=== PATIENT | male | born 2000 | race Caucasian/White ===

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

== ENCOUNTER → 2023-10-02 | Outpatient (CLI) | payer OTHER, SELFPAY ==
[2023-10-02 17:19] LABS: Mucous, Urine 0 SEEN /hpf (<or=2+); Squamous Epithelial Cells - UA 0 SEEN /hpf (0-5)
[2023-10-02 17:48] LABS: Color, Urine Yellow (Yellow); Glucose, Dipstick Normal (Normal); Ketone-Dipstick Negative (Negative); Leukocyte Esterase-Dipstick 500 /ul (Negative); Nitrite-Dipstick Negative (Negative); Occult Blood-Urine 10 /ul (Negative); Protein-Dipstick 30 mg/dl (Negative); Urine Bilirubin Dipstick Negative (Negative); Urine Clarity Cloudy (Clear); Urine Urobilinogen Normal (Normal)
[2023-10-02 18:06] LABS: Bacteria RARE /hpf (None Seen); Red Blood Cells-Urine 0-5 SEEN /hpf (0-5); White Blood Cells >100 SEEN /hpf (0-5)
== END | disposition home or self-care (01) ==
PROVIDERS: PCP Pediatrics; Visit Provider Physician Assistant
DX: R30.0 Dysuria (principal)
CPT/HCPCS: 81001; 87086; 87491; 87591

== ENCOUNTER 2024-04-06 20:30 | Emergency (ER) | payer OTHER, SELFPAY ==
[2024-04-06 20:31] VITALS: BP 131/84; PULSE 85; RESP 18; TEMP 36.1; O2SAT 99; BMI 23.3
[2024-04-06 21:22] LABS: Absolute Lymphocyte Count 1.71 X10^3/uL (0.83-4.51); Absolute Neutrophil Count 7.4 X10^3/uL (2.0-7.7); Basophil# 0.04 X10^3/uL; Basophil% 0.4 % (0-1); Eosinophil# 0.32 X10^3/uL; Eosinophils% 3.1 % (0-5); Hematocrit 43.6 % (40-54); Lymphocyte # 1.71 X10^3/ul (0.83-4.51); Lymphocyte % 16.4 % (19-41); Mean Corp Hgb Conc 34.4 g/dL (32-36); Mean Corpuscular Hgb 29.9 pg (27.0-32.0); Mean Corpuscular Volume 86.9 fL (80-94); Mean Platelet Vol. 9.1 fl (6.2-12.0); Monocyte# 0.85 X10^3/uL; Monocyte% 8.2 % (0-10); NRBC Flagged by Analyzer 0 % (0-5); Neutrophil # 7.44 X10^3/uL (2.7-7.7); Neutrophil % 71.5 % (47-70); Platelet Count 310 K/mm3 (150-450); RBC Distribution Width CV 12.7 % (11.6-14.6); RBC Distribution Width SD 40.2 fl (35.1-43.9); Red Blood Count 5.02 M/mm3 (4.6-6.2); White Blood Count 10.4 K/mm3 (4.4-11.0)
[2024-04-06] MEDS: Ondansetron 4 MG/2 ML Vial IV (21:27)
[2024-04-06] MEDS: 0.9% Normal Saline (500mL Bag) 500 ML 999 ML IV (21:27)
[2024-04-06 21:30] VITALS: BP 132/79; PULSE 62; RESP 22; O2SAT 99
[2024-04-06 21:33] LABS: International Normalized Ratio 1.1; Prothrombin Time (Protime)PT. 14.1 SECONDS (11.7-14.9)
[2024-04-06 21:34] LABS: Partial Thromboplast Time 27.4 Seconds (24.1-36.2)
[2024-04-06 21:35] LABS: Anion Gap 7 (5-15); BUN 8 mg/dL (7-18); BUN/Creat Ratio 7.1 RATIO (10-20); Calcium,Total 9.3 mg/dL (8.5-10.1); Chloride 103 mmol/L (98-107); Creatinine, Serum 1.13 mg/dL (0.70-1.30); EST Glomerular Filtration Rate 86 mL/min (>60); Est Glom Filt Rate - Afr Amer 105 mL/min (>60); Glucose 88 mg/dL (74-106); Potassium 3.5 mmol/L (3.5-5.1); Sodium Level 138 mmol/L (136-145)
--- NOTE | 2024-04-06 21:50 | CT_ITS ---
EXAM: CT CERVICAL SPINE WITHOUT INTRAVENOUS CONTRAST CLINICAL INDICATION: polytrauma TECHNIQUE: Helically acquired images were obtained of the cervical spine without intravenous contrast. 2D reformatted images were reviewed. This CT exam was performed using one or more of the following dose reduction techniques: automated exposure control, adjustment of the mA and/or kV according to patient size, and/or use of iterative reconstruction technique. RADIATION DOSE: Total DLP: 488.81 mGy-cm. COMPARISON: No relevant prior studies available. FINDINGS: VERTEBRAE: Unremarkable. No compression fracture, posterior element fracture or facet dislocation. The odontoid is intact. No traumatic subluxation. No discrete lytic or blastic abnormality. Normal alignment. Normal craniocervical junction and cervicothoracic junction. DISCS/SPINAL CANAL/NEURAL FORAMINA: Unremarkable. Disc heights are preserved. No critical stenosis. No neural foraminal encroachment. SOFT TISSUES: Unremarkable. No prevertebral soft tissue swelling. LUNG APICES: Unremarkable as visualized. Clear. Visualized upper ribs are intact. CT/Spine Cervical without Contras IMPRESSION: Negative. No evidence of acute cervical spinal fracture or spondylolisthesis. Electronically Signed: Luis Shrestha MD at 23:24 EDT ,
--- NOTE | 2024-04-06 21:50 | CT_ITS ---
EXAM: CT HEAD WITHOUT INTRAVENOUS CONTRAST CLINICAL INDICATION: head injury TECHNIQUE: Multiple axial images were obtained of the head without intravenous contrast. This CT exam was performed using one or more of the following dose reduction techniques: automated exposure control, adjustment of the mA and/or kV according to patient size, and/or use of iterative reconstruction technique. RADIATION DOSE: Total DLP: 829.85 mGy-cm. COMPARISON: No relevant prior studies available. FINDINGS: BRAIN AND EXTRA-AXIAL SPACES: Unremarkable. No intra- or extra-axial hemorrhage. No evidence of acute infarct. No intracranial mass or mass effect. There is preservation of the mcneill/white matter interface. Posterior fossa structures are unremarkable. Ventricles are appropriate for age. No hydrocephalus. Basal cisterns are patent. BONES/JOINTS: Unremarkable. No discrete lytic or blastic abnormalities. No linear or depressed skull fracture. SOFT TISSUES: Unremarkable. No scalp hematoma. SINUSES: Minimal to mild mucosal thickening noted within the inferior frontal sinuses, ethmoid air cells, maxillary antra and left sphenoid sinus. No paranasal sinus air-fluid levels are identified. MASTOID AIR CELLS: Unremarkable. Clear. ORBITS: Visualized globes, extraocular muscles, optic nerves and retrobulbar fat appear unremarkable. CT/Brain/Head without Contrast IMPRESSION: Minimal to mild paranasal sinus mucosal thickening. Otherwise negative. No skull fracture or acute intracranial hemorrhage. Electronically Signed: Luis Shrestha MD at 23:20 EDT ,
[2024-04-06 22:00] VITALS: BP 117/78; PULSE 58; RESP 22; O2SAT 99
[2024-04-06 23:00] VITALS: BP 125/75; PULSE 58; RESP 17; O2SAT 97
[2024-04-06] MEDS: Acetaminophen 500 MG Tablet 1000 MG PO (23:32)
--- NOTE | 2024-04-06 23:39 | EX.ED.GENINJ ---
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 He fell off the bull he states he took the horn to the head. He states he did lose conscious. Headache with nausea. Laceration to right ear. Initially reported tetanus unknown however later stated within 5 years. No anticoagulation. He has had concussions in the past. He is not on any blood thinners. No neck back or chest pain. Ambulating to the department. Denies any allergies. Tetanus Immunization: <5 years Prior similar symptoms: Yes PFSH PFS Medical History Acute otitis media, right Urethral discharge Non-smoker Hydrocele Home Medications ?Medication ?Instructions ?Recorded ?Last Taken ?Type ondansetron 4 mg disintegrating 4 mg PO Q8H PRN PRN Nausea #10 tabs 04/06/24 Unknown Rx tablet Allergy/AdvReac Type Severity Reaction Status Date / Time No Known Allergies Allergy Verified 10/02/23 15:37 Family History Father Hypertension Surgical History History of tonsillectomy and adenoidectomy Social History housing: house Smoking Status: Never smoker Smokeless tobacco user: snuff alcohol intake: never what type of physical activity do you participate in: none do you feel safe at home: Yes ROS ROS ED Constitutional Constitutional ED: Denies chills, fever(s) or sweats Eyes Eyes: Denies change in vision ENT ENT ED: Denies dysphagia or sore throat Cardiovascular Cardiovascular: Denies chest pain, leg edema, palpitations or racing heartbeat Respiratory/Chest Respiratory/Chest: Denies cough, dyspnea or dyspnea on exertion Gastrointestinal Gastrointestinal: Reports nausea; Denies abdominal pain, diarrhea or vomiting Genitourinary Genitourinary ED: Denies dysuria, hematuria or urinary frequency Musculoskeletal Musculoskeletal: Denies back pain, extremity pain or neck pain Integumentary Reports wounds; Denies rash Neurologic Neurologic: Reports headache(s); Denies paresthesias or weakness EXAM Physical Exam Const Vital Signs: 04/06/24 20:31 04/06/24 21:30 04/06/24 21:44 Temperature 97 F L Temperature Source Temporal Pulse Rate 85 62 Respiratory Rate 18 22 H Respiratory Effort Normal Respiratory Depth Normal Respiratory Pattern Normal Blood Pressure 131/84 H 132/79 H Blood Pressure Mean 99 96 Pulse Ox 99 99 Oxygen Delivery Method Room Air Room Air Room Air 04/06/24 22:00 04/06/24 23:00 04/07/24 00:03 Temperature 97.8 F Temperature Source Pulse Rate 58 L 58 L 64 Respiratory Rate 22 H 17 18 Respiratory Effort Respiratory Depth Respiratory Pattern Blood Pressure 117/78 125/75 H 112/66 Blood Pressure Mean 91 91 81 Pulse Ox 99 97 99 Oxygen Delivery Method Room Air Room Air Positive well nourished and well developed Constitutional Narrative: GCS 15 General Appearance ED: well developed and NAD HEENT Reports moist mucous membranes HEENT Narrative: Right ear: On inferior auricle near the tragus, 1 cm laceration additional puncture inferior to the tragus. Bleeding controlled with pressure. There was blood in the canal however TM was intact. Left ear: Normal. normocephalic Eyes EOMs intact bilaterally and conjunctivae normal General Eye ED: Yes normal appearance of both eyes Neck no lymphadenopathy and supple General: Negative for tenderness Chest Wall inspection of chest normal and palpation of chest normal Chest: Negative for tenderness Resp normal respiratory effort and normal air movement Effort and Inspection: symmetric chest movement; Negative for respiratory distress Cardio regular rate, regular rhythm and no murmurs Peripheral Pulses: pulses 2+ throughout GI normal to inspection, nondistended, normoactive bowel sounds and non-tender Palpation: Negative for guarding or rebound tenderness present Back/Spine no CVA tenderness, normal to inspection and no thoracic nor lumbar tenderness Extremity normal to inspection and full ROM General Extremety ED: Negative for edema or tenderness General Extremity: Negative for edema Neuro oriented x3, CN's II-XII intact bilaterally and no sensory deficits noted Sensorium / Orientation: awake and alert Skin Skin Narrative: See above MDM MDM MDM Narrative Medical decision making narrative: Interventions / MDM: Differential diagnosis: Concussion with loss of consciousness Diagnosis considered but do not suspect: Intracranial hemorrhage/fracture however image studies negative. My EKG interpretation: N/A Imaging independently reviewed and interpreted by myself: CT brain/cervical spine: No intracranial hemorrhage, no fractures noted. External documents reviewed: N/A Test considered but not ordered:N/A ED course: Patient had IV established by nursing with labs drawn. This was sent. Head injury with loss of consciousness. With high mechanism injury, trauma scans head and neck ordered for further evaluation. IV Zofran ordered. Scans were negative for fracture or intracranial hemorrhage. His tetanus up-to-date. I discussed options for laceration repair potential 1 stitch however declines 1 skin glue. Wound was cleansed by nursing this was glued with good approximation. There was no auricular hematoma on exam. Blood in his external canal likely from the laceration. His TM was intact. Treated with Tylenol. Concussion precautions were discussed. Outpatient follow-up. He will continue Tylenol. Prescription for Zofran to use as needed. Re-evaluation: stable Disposition discussed with patient/family/significant other: Patient and mother Case discussed with consulting clinician: N/A This note was generated with [employer] dictation software. It may contain incorrect words, spelling, and punctuation that were not noted in checking the note before signing. Lab Data Attestation: I reviewed the patient's lab results. Labs: Laboratory Results - last 24 hr 04/06/24 21:15 WBC 10.4 RBC 5.02 Hgb 15.0 Hct 43.6 MCV 86.9 MCH 29.9 MCHC 34.4 RDW Std Deviation 40.2 RDW Coeff of Tyrese 12.7 Plt Count 310 MPV 9.1 Immature Gran % (Auto) 0.400 Neut % (Auto) 71.5 H Lymph % (Auto) 16.4 L [place] % (Auto) 8.2 Eos % (Auto) 3.1 Baso % (Auto) 0.4 Absolute Neuts (auto) 7.4 Absolute Lymphs (auto) 1.71 Nucleated RBC % 0 PT 14.1 INR 1.1 APTT 27.4 Sodium 138 Potassium 3.5 Chloride 103 Carbon Dioxide 28.0 Anion Gap 7 BUN 8 Creatinine 1.13 Estim Creat Clear Calc 113.50 Est GFR (MDRD) Af Amer 105 Est GFR (MDRD) Non-Af 86 BUN/Creatinine Ratio 7.1 L Glucose 88 Calcium 9.3 Radiography Diagnostic Testing: Clinical Impression(s) from Imaging Studies Brain CT 04/06/24 21:50 IMPRESSION: Minimal to mild paranasal sinus mucosal thickening. Otherwise negative. No skull fracture or acute intracranial hemorrhage. Electronically Signed: Luis Shrestha MD at 23:20 EDT , Cervical Spine CT 04/06/24 21:50 IMPRESSION: Negative. No evidence of acute cervical spinal fracture or spondylolisthesis. Electronically Signed: Luis Shrestha MD at 23:24 EDT , Discharge Plan Triage Chief Complaint: Head Injury ED Provider: Julina Martinez Dx/Rx/DC Orders Clinical Impression: Concussion with loss of consciousness <= 30 min, Laceration of auricle of right ear, Nausea Instructions: Concussion Dc, ED Laceration, Skin Adhesive Prescriptions: New ondansetron 4 mg tablet,disintegrating 4 mg PO Q8H PRN PRN (Reason: Nausea) Qty: 10 0RF Primary Care Provider: Care Physician,No Primary Referrals: Lisa Mart [Non-Staff] - 1-2 Weeks Care Physician,No Primary [Primary Care Provider] - Activity Restrictions/Additional Instructions: CT brain and cervical spine negative. Adhesive glue placed to your right ear. Print Language: German Disposition Disposition: Home, Self Care Discharge Date/Time: 04/07/24 00:05
[2024-04-07 00:03] VITALS: BP 112/66; PULSE 64; RESP 18; TEMP 36.6; O2SAT 99
== END 2024-04-07 00:05 | disposition home or self-care (01) ==
PROVIDERS: Emergency Provider Emergency Medicine; Visit Provider Emergency Medicine
DX: S01.311A Laceration without foreign body of right ear, initial encounter (principal); R11.0 Nausea; S06.0X1A Concussion with loss of consciousness of 30 minutes or less, initial encounter; W55.22XA Struck by cow, initial encounter; Y93.89 Activity, other specified
CPT/HCPCS: 70450; 72125; 80048; 85025; 85610; 85730; 96361; 96374; 99283; J7040; A4216; J2405

== ENCOUNTER 2025-08-14 16:17 | Emergency (ER) | payer BC, OTHER, SELFPAY ==
[2025-08-14 16:18] VITALS: BP 141/81; PULSE 65; RESP 18; TEMP 36.1; O2SAT 100; BMI 24.1
--- NOTE | 2025-08-14 16:28 | EX.ED.UPPERE ---
HPI History of Present Illness HPI Narrative: Healthy 25-year-old male who is right-hand dominant. Accidentally lacerated the distal palmar aspect on the radial side of his left index finger about an hour ago at home. He was using a razor blade. No other complaints. Believes tetanus is up-to-date. Chief Complaint: Laceration Informant: patient and parent Occured/Mechanism Mechanism/Context: Yes injury Onset/Context/Timing Onset: Today and Hours (About 1 hour ago.) Context: Sudden Onset Timing: Continuous Quality of Pain: Sharp Current Severity: Mild Maximum Severity: Mild Associated Symptoms Associated Symptoms: Negative for Parasthesia, Weakness or Loss of Funtion Narrative Narrative: Healthy 24-year-old male [id number] lacerated the left index finger distal palmar end of the index finger with a razor blade accidentally about an hour ago. Believes his tetanus is up-to-date. Tetanus Immunization: 5-10 years Prior similar symptoms: No Recent Illness/Hospitalization: No PFSH PFSH Medical History Acute otitis media, right Urethral discharge Non-smoker Hydrocele Home Medications ?Medication ?Instructions ?Recorded ?Last Taken ?Type ondansetron 4 mg disintegrating 4 mg PO Q8H PRN PRN Nausea #10 tabs 04/06/24 Unknown Rx tablet Allergy/AdvReac Type Severity Reaction Status Date / Time No Known Allergies Allergy Verified 08/14/25 16:18 Family History Father Hypertension Surgical History History of tonsillectomy and adenoidectomy Social History housing: house Smoking Status: Never smoker Smokeless tobacco user: snuff alcohol intake: never what type of physical activity do you participate in: none do you feel safe at home: Yes ROS ROS ED ROS Narrative Denies recent illness. Constitutional Constitutional ED: Denies chills or fever(s) Eyes Eyes: Denies blurry vision ENT ENT ED: Denies ear pain Cardiovascular Cardiovascular: Denies chest pain Respiratory/Chest Respiratory/Chest: Denies cough Gastrointestinal Gastrointestinal: Denies abdominal pain Genitourinary Genitourinary ED: Denies dysuria Musculoskeletal Musculoskeletal: Denies back pain Integumentary Denies abscess or Abrasions Neurologic Neurologic: Denies headache(s) Psychiatric Psychiatric: Denies anxiety Endocrine Endocrinology: Denies cold intolerance or heat intolerance Allergic/Immunologic Allergic/Immunologic ED: Denies mouth swelling, tongue swelling or urticaria EXAM Physical Exam Narrative Exam Narrative: Well-appearing 25-year-old male. Vital signs are stable afebrile. No acute distress. H EENT exam pupils round react light. Moist mucous members. Lungs clear to auscultation bilaterally. Heart regular rhythm no murmur. Chest wall nontender. Abdomen soft nontender. Moving all 4 extremities. Neurovascularly intact. Left index finger palmar aspect distal third pasty PIP there is a 1 to 2 inch laceration that is bleeding. No pulsatile bleeding. He has full flexion extension there is no signs of a flexor tendon injury. Normal touch sensation. No signs of infection or foreign body. Neurologically is awake alert. Answering questions following commands. Normal sensation around the wound area. Const Vital Signs: 08/14/25 16:18 Temperature 97 F L Temperature Source Temporal Pulse Rate 65 Respiratory Rate 18 Blood Pressure 141/81 H Blood Pressure Mean 101 Pulse Ox 100 Oxygen Delivery Method Room Air MDM MDM MDM Narrative Medical decision making narrative: 25-year-old [id number] male accidentally lacerated his left index finger about an hour ago on a razor blade. Believes his tetanus is up-to-date. This will need suture repaired. He is currently cleaning off from the sink with soap and water. Area we will anesthetize and then closed. Prior to discharge his father did want him to have his tetanus updated so that will be done also. History & Record Review Discussion w/independent historian: Patient and Family Additional record(s) reviewed:: Prior outpatient record, Prior ED visit and Prior labs Procedures Lacerations Left index finger laceration:: Length: 1.5 in Depth: Sub Q Shape: Linear Laceration repair: Digital block, Irrigated, Lidocaine and Nerve block (Digital block) Number of Sutures/Brilliant: 3 Suture Information: Ethilon, Simple and 4-0 Comment: Left index finger laceration. Distal third. Palmar aspect radial side of the left index finger and about an inch from the tip. Follows the skin and subcu tissue. Oozing of blood. No pulsatile bleeding. No signs of foreign body or infection. Full flexion extension. Locally anesthetized with a digital block. 1 to 2 inch laceration. Closed using 3 simple erupted 4-0 Ethilon sutures. Proper hemostasis wound closure obtained. Patient tolerated well. He was instructed on wound care and suture removal in 7 to 10 days. White Trays signs of infection. Discharge Plan Triage Chief Complaint: Laceration ED Provider: Ulisses Tan Dx/Rx/DC Orders Clinical Impression: Finger laceration Instructions: ED Hand Laceration- All Closures Prescriptions: No Action ondansetron 4 mg tablet,disintegrating 4 mg PO Q8H PRN PRN (Reason: Nausea) Qty: 10 0RF Primary Care Provider: Care Physician,No Primary Referrals: Steve Flood MD [Med Staff - [facility]] - 10 Day for suture removal Care Physician,No Primary [Primary Care Provider, Medical] Activity Restrictions/Additional Instructions: Tylenol and/or Motrin for pain. If our dressing stays dry and clean you can leave it on for 3 to 4 days then change daily and clean daily with soap and water and apply antibiotic ointment. If it gets dirty or wet change it. You can just use a Band-Aid. Watch for any signs of infection such as swelling, redness, fever or pus if seen return. Stitches out in 10 days. Print Language: Nigerien Disposition Disposition: Home, Self Care
--- OUTSIDE RECORDS SUMMARY | 2025-08-14 16:43 | XMS RPT_ITS | CCD ---
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 04/29/2024) predniSONE (DELTASONE) 10 mg tablet Take 4 tabs daily for 3 days, then 2 tabs daily for 3 days, then 1 tab daily for 3 days with food. (Patient not taking: Reported on 01/22/2024) FAMILY HISTORY Problem Relation Age of Onset Asthma Father Hypertension Father Social History Tobacco Use Smoking status: Never Smokeless tobacco: Current Tobacco comments: chew Substance Use Topics Alcohol use: No Drug use: No Review of Systems Constitutional: Negative for chills, diaphoresis, fatigue and fever. HENT: Negative for congestion and sore throat. Respiratory: Negative for apnea, cough, choking and chest tightness. Cardiovascular: Negative for chest pain. Gastrointestinal: Negative for abdominal pain, anorexia, change in bowel habit, nausea and vomiting. Musculoskeletal: Negative for arthralgias, joint swelling, myalgias and neck pain. Right forearm Skin: Negative for color change, pallor and rash. Neurological: Negative for vertigo, weakness, numbness and headaches. Hematological: Negative for adenopathy. Does not bruise/bleed easily. Psychiatric/Behavior al: Negative for agitation and behavioral problems. Objective BP 122/78 Pulse 70 Temp 36.2 ?C (97.2 ?F) Resp 20 Wt 78.7 kg (173 lb 8 oz) SpO2 100% Physical Exam Vitals and nursing note reviewed. Constitutional: General: He is not in acute distress. Appearance: Normal appearance. He is not ill-appearing, toxic-appearing or diaphoretic. HENT: Head: Normocephalic and atraumatic. Right Ear: External ear normal. Left Ear: External ear normal. Nose: Nose normal. No congestion or rhinorrhea. Mouth/Throat: Mouth: Mucous membranes are moist. Pharynx: Oropharynx is clear. No oropharyngeal exudate or posterior oropharyngeal erythema. Eyes: General: Right eye: No discharge. Left eye: No discharge. Extraocular Movements: Extraocular movements intact. Conjunctiva/sclera: Conjunctivae normal. Pupils: Pupils are equal, round, and reactive to light. Cardiovascular: Rate and Rhythm: Normal rate and regular rhythm. Pulses: Normal pulses. Heart sounds: Normal heart sounds. No murmur heard. No friction rub. No gallop. Pulmonary: Effort: Pulmonary effort is normal. No respiratory distress. Breath sounds: Normal breath sounds. No stridor. No wheezing, rhonchi or rales. Chest: Chest wall: No tenderness. Abdominal: General: Abdomen is flat. There is no distension. (more content not included)... Normal [facility] XR WRIST 3V PA/LAT/OBL RTon 04-29-2024 XR WRIST 3V PA/LAT/OBL RT * * *Final Report* * * DATE OF EXAM: Apr 29 2024 5:45PM WOX 5271 - XR WRIST 3V PA/LAT/OBL RT / PROCEDURE REASON: Pain of right forearm * * * * Physician Interpretation * * * * RIGHT WRIST X-RAY SERIES HISTORY: Pain of right forearm TECHNIQUE: PA, lateral, oblique COMPARISON: None available. RESULT: No evidence of acute fracture or dislocation. A metal plate and multiple metal screws transfix the mid to distal right ulna. The surgical hardware appears intact. There is an ossicle or old ununited fracture involving the ulnar styloid. There is some flattening along the ulnar aspect of the lunate bone which may be related to old trauma. IMPRESSION: No acute osseous abnormality is identified. [facility] Transcribe Date/Time: Apr 29 2024 7:11P Dictated by : ELIANA ROCHE MD This examination was interpreted and the report reviewed and electronically signed by: ELIANA ROCHE MD on Apr 29 2024 7:14PM EST [id number] CN Normal [facility] XR Wrist - right PA and Late ral and Obliqueon 04-29-2024 IMPRESSION: No acute osseous abnormality is identified. Stripper Cutter Machine: [facility] Transcribe Date/Time: Apr 29 2024 7:11P Dictated by : ELIANA ROCHE MD This examination was interpreted and the report reviewed and electronically signed by: ELIANA ROCHE MD on Apr 29 2024 7:14PM EST DIVISION OF RADIOLOGY * * *Final Report* * * DATE OF EXAM: Apr 29 2024 5:45PM WOX 5271 - XR WRIST 3V PA/LAT/OBL RT / PROCEDURE REASON: Pain of right forearm * * * * Physician Interpretation * * * * RIGHT WRIST X-RAY SERIES HISTORY: Pain of right forearm TECHNIQUE: PA, lateral, oblique COMPARISON: None available. RESULT: No evidence of acute fracture or dislocation. A metal plate and multiple metal screws transfix the mid to distal right ulna. The surgical hardware appears intact. There is an ossicle or old ununited fracture involving the ulnar styloid. There is some flattening along the ulnar aspect of the lunate bone which may be related to old trauma. DIVISION OF RADIOLOGY Provider, [facility] [place] - 04/29/2024 * * *Final Report* * * DATE OF EXAM: Apr 29 2024 5:45PM WOX 5271 - XR WRIST 3V PA/LAT/OBL RT / PROCEDURE REASON: Pain of right forearm * * * * Physician Interpretation * * * * RIGHT WRIST X-RAY SERIES HISTORY: Pain of right forearm TECHNIQUE: PA, lateral, oblique COMPARISON: None available. RESULT: No evidence of acute fracture or dislocation. A metal plate and multiple metal screws transfix the mid to distal right ulna. The surgical hardware appears intact. There is an ossicle or old ununited fracture involving the ulnar styloid. There is some flattening along the ulnar aspect of the lunate bone which may be related to old trauma. IMPRESSION IMPRESSION: No acute osseous abnormality is identified. Stripper Cutter Machine: [facility] Transcribe Date/Time: Apr 29 2024 7:11P Dictated by : ELIANA ROCHE MD This examination was interpreted and the report reviewed and electronically signed by: ELIANA ROCHE MD on Apr 29 2024 7:14PM [facility] Radiology Study observation (narrative) [facility] XR Wrist - right PA and Late ral and ObliqueOrdered By: [facility] Provider on 04-29-2024 [facility] Basic Metabolic Profile (BMP )on 04-06-2024 BUN/CRE 7.1 RATIO Low 10-20 [facility] Comment on above: Performed By: #### L 500.2500, L100.0100, L300.4310, L300.3900 #### [facility] [address] [place], [address] CA,Total 9.3 mg/dL Normal 8.5-10.1 [facility] Comment on above: Performed By: #### L 500.2500, L100.0100, L300.4310, L300.3900 #### [facility] [address] [place], [address] Chloride [Moles/Vol] 103 mmol/L Normal 98-107 [facility] Comment on above: Performed By: #### L 500.2500, L100.0100, L300.4310, L300.3900 #### [facility] [address] [place], [address] CO2 [Moles/Vol] 28.0 mmol/L Normal 21.0-32.0 [facility] Comment on above: Performed By: #### L 500.2500, L100.0100, L300.4310, L300.3900 #### [facility] [address] [place], [address] Creatinine [Mass/Vol] 1.13 mg/dL Normal 0.70-1.30 [facility] Comment on above: Result Comment: The validity of the calculated GFR GFRAA in patients over 70 years has not been determined. Clinical correlation is essential. Performed By: #### L 500.2500, L100.0100, L300.4310, L300.3900 #### [facility] [address] [place], [address] ECRCL 113.50 ml/min Normal [facility] Comment on above: Performed By: #### L 500.2500, L100.0100, L300.4310, L300.3900 #### [facility] [address] [place], [address] EST GFR - AA 105 mL/min Normal >60 [facility] Comment on above: Result Comment: Afri can Salvadorean GFR Calc Performed By: #### L 500.2500, L100.0100, L300.4310, L300.3900 #### [facility] [address] [place], [address] GAP 7 Normal 5-15 [facility] Comment on above: Performed By: #### L 500.2500, L100.0100, L300.4310, L300.3900 #### [facility] [address] [place], [address] GFR/1.73 sq M.predicted among non-blacks MDRD (S/P/Bld) [Vol rate/Area] 86 mL/min/{1.73_m2} Normal >60 [facility] Comment on above: Result Comment: Non- GFR Calc Performed By: #### L 500.2500, L100.0100, L300.4310, L300.3900 #### [facility] [address] [place], [address] Glucose [Mass/Vol] 88 mg/dL Normal 74-106 [facility] Comment on above: Performed By: #### L 500.2500, L100.0100, L300.4310, L300.3900 #### [facility] [address] [place], [address] Potassium [Moles/Vol] 3.5 mmol/L Normal 3.5-5.1 [facility] Comment on above: Performed By: #### L 500.2500, L100.0100, L300.4310, L300.3900 #### [facility] [address] [place], [address] Sodium [Moles/Vol] 138 mmol/L Normal 136-145 [facility] Comment on above: Performed By: #### L 500.2500, L100.0100, L300.4310, L300.3900 #### [facility] [address] [place], [address] Urea nitrogen [Mass/Vol] 8 mg/dL Normal 7-18 [facility] Comment on above: Performed By: #### L 500.2500, L100.0100, L300.4310, L300.3900 #### [facility] [address] [place], [address] Brain/Head without Contrasto n 04-06-2024 Brain/Head without Contrast [facility] [address] [place] [address] Brain/Head without Contrast MR#: [id number] Acct: [id number] Name: SEVERO WHITE Rep #: [id number] : 2000 M 23 From: Luis herron MD PCP: Care Physician,No Primary Status: REG ER Study: Brain/Head without Contrast Date of Exam: 03/21 03/13 Exam# [id number] Ordering Dr: Julian Martinez DO [id number] EXAM: CT HEAD WITHOUT INTRAVENOUS CONTRAST CLINICAL INDICATION: head injury TECHNIQUE: Multiple axial images were obtained of the head without intravenous contrast. This CT exam was performed using one or more of the following dose reduction techniques: automated exposure control, adjustment of the mA and/or kV according to patient size, and/or use of iterative reconstruction technique. RADIATION DOSE: Total DLP: 829.85 mGy-cm. COMPARISON: No relevant prior studies available. FINDINGS: BRAIN AND EXTRA-AXIAL SPACES: Unremarkable. No intra- or extra-axial hemorrhage. No evidence of acute infarct. No intracranial mass or mass effect. There is preservation of the mcneill/white matter interface. Posterior fossa structures are unremarkable. Ventricles are appropriate for age. No hydrocephalus. Basal cisterns are patent. BONES/JOINTS: Unremarkable. No discrete lytic or blastic abnormalities. No linear or depressed skull fracture. SOFT TISSUES: Unremarkable. No scalp hematoma. SINUSES: Minimal to mild mucosal thickening noted within the inferior frontal sinuses, ethmoid air cells, maxillary antra and left sphenoid sinus. No paranasal sinus air-fluid levels are identified. MASTOID AIR CELLS: Unremarkable. Clear. ORBITS: Visualized globes, extraocular muscles, optic nerves and retrobulbar fat appear unremarkable. CT/Brain/Head without Contrast IMPRESSION: Minimal to mild paranasal sinus mucosal thickening. Otherwise negative. No skull fracture or acute intracranial hemorrhage. Electronically Signed: Luis Shrestha MD at 23:20 EDT , CC: Dr. Julian Martinez DO; No Primary Care Physician Stripper Cutter Machine: Signed Normal [facility] CBC W/Diff, Automatedon 03-21 Absolute Lymph 1.71 X10 3/uL Normal 0.83-4.51 [facility] Comment on above: Performed By: #### L 500.2500, L100.0100, L300.4310, L300.3900 #### [facility] [address] [place], [address] Absolute Neut 7.4 X10 3/uL Normal 2.0-7.7 [facility] Comment on above: Performed By: #### L 500.2500, L100.0100, L300.4310, L300.3900 #### [facility] [address] [place], [address] Basophils/100 WBC (Bld) 0.4 % Normal 0-1 [facility] Comment on above: Performed By: #### L 500.2500, L100.0100, L300.4310, L300.3900 #### [facility] [address] [place], [address] Eosinophils/100 WBC (Bld) 3.1 % Normal 0-5 [facility] Comment on above: Performed By: #### L 500.2500, L100.0100, L300.4310, L300.3900 #### [facility] [address] [place], [address] Erythrocyte distribution width (RBC) [Ratio] 12.7 % Normal 11.6-14.6 [facility] Comment on above: Performed By: #### L 500.2500, L100.0100, L300.4310, L300.3900 #### [facility] [address] [place], [address] Hematocrit (Bld) [Volume fraction] 43.6 % Normal 40-54 [facility] Comment on above: Performed By: #### L 500.2500, L100.0100, L300.4310, L300.3900 #### [facility] [address] [place], [address] Hemoglobin (Bld) [Mass/Vol] 15.0 g/dL Normal 13.0-16.5 [facility] Comment on above: Performed By: #### L 500.2500, L100.0100, L300.4310, L300.3900 #### [facility] [address] [place], [address] IG% 0.400 Normal 0.0-0.9 [facility] Comment on above: Result Comment: IG% - Immature Granulocytes (promyelocytes, myelocytes and metamyelocytes) > 1% indicates that a LEFT SHIFT is Present. Performed By: #### L 500.2500, L100.0100, L300.4310, L300.3900 #### [facility] [address] [place], [address] Lymphocytes/100 WBC (Bld) 16.4 % Low 19-41 [facility] Comment on above: Performed By: #### L 500.2500, L100.0100, L300.4310, L300.3900 #### [facility] [address] [place], [address] MCH (RBC) [Entitic mass] 29.9 pg Normal 27.0-32.0 [facility] Comment on above: Performed By: #### L 500.2500, L100.0100, L300.4310, L300.3900 #### [facility] [address] [place], [address] MCHC (RBC) [Mass/Vol] 34.4 g/dL Normal 32-36 [facility] Comment on above: Performed By: #### L 500.2500, L100.0100, L300.4310, L300.3900 #### [facility] [address] [place], [address] MCV (RBC) [Entitic vol] 86.9 fL Normal 80-94 [facility] Comment on above: Performed By: #### L 500.2500, L100.0100, L300.4310, L300.3900 #### [facility] [address] [place], [address] Monocytes/100 WBC (Bld) 8.2 % Normal 0-10 [facility] Comment on above: Performed By: #### L 500.2500, L100.0100, L300.4310, L300.3900 #### [facility] [address] [place], [address] Neutrophils/100 WBC (Bld) 71.5 % High 47-70 [facility] Comment on above: Performed By: #### L 500.2500, L100.0100, L300.4310, L300.3900 #### [facility] [address] [place], [address] Nucleated RBC (Bld) [#/Vol] 0 10*3/uL Normal 0-5 [facility] Comment on above: Performed By: #### L 500.2500, L100.0100, L300.4310, L300.3900 #### [facility] [address] [place], [address] Platelet mean volume (Bld) [Entitic vol] 9.1 fL Normal 6.2-12.0 [facility] Comment on above: Performed By: #### L 500.2500, L100.0100, L300.4310, L300.3900 #### [facility] [address] [place], [address] Platelets (Bld) [#/Vol] 310 10*3/uL Normal 150-450 [facility] Comment on above: Performed By: #### L 500.2500, L100.0100, L300.4310, L300.3900 #### [facility] [address] [place], [address] RBC (Bld) [#/Vol] 5.02 10*6/uL Normal 4.6-6.2 [facility] Comment on above: Performed By: #### L 500.2500, L100.0100, L300.4310, L300.3900 #### [facility] [address] [place], [address] RDW SD 40.2 fl Normal 35.1-43.9 [facility] Comment on above: Performed By: #### L 500.2500, L100.0100, L300.4310, L300.3900 #### [facility] [address] [place], [address] WBC (Bld) [#/Vol] 10.4 10*3/uL Normal 4.4-11.0 [facility] Comment on above: Performed By: #### L 500.2500, L100.0100, L300.4310, L300.3900 #### [facility] [address] [place], [address] Emergency Department Summary on 04-06-2024 Emergency Department Summary [facility] Medical Records Department [address] [place] [address] Emergency Department Summary 04/06/24 MR#: [id number] Acct: [id number] Name: SEVERO WHITE Rep #: [id number] : 2000 23 From: Julian [place] PCP: Care Physician,No Primary Status:DEP ER Location: ED 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 He fell off the bull he states he took the horn to the head. He states he did lose conscious. Headache with nausea. Laceration to right ear. Initially reported tetanus unknown however later stated within 5 years. No anticoagulation. He has had concussions in the past. He is not on any blood thinners. No neck back or chest pain. Ambulating to the department. Denies any allergies. Tetanus Immunization: <5 years Prior similar symptoms: Yes [facility] Medical History Acute otitis media, right Urethral discharge Non-smoker Hydrocele Home Medications ???Medication ???Instructions ???Recorded ???Last Taken ???Type ondansetron 4 mg disintegrating 4 mg PO Q8H PRN PRN Nausea #10 tabs 04/06/24 Unknown Rx tablet Allergy/AdvReac Type Severity Reaction Status Date / Time No Known Allergies Allergy Verified 10/02/23 15:37 Family History Father Hypertension Surgical History History of tonsillectomy and adenoidectomy Social History housing: house Smoking Status: Never smoker Smokeless tobacco user: snuff alcohol intake: never what type of physical activity do you participate in: none do you feel safe at home: Yes ROS ROS ED Constitutional Constitutional ED: Denies chills, fever(s) or sweats Eyes Eyes: Denies change in vision ENT ENT ED: Denies dysphagia or sore throat Cardiovascular Cardiovascular: Denies chest pain, leg edema, palpitations or racing heartbeat Respiratory/Chest Respiratory/Chest: Denies cough, dyspnea or dyspnea on exertion Gastrointestinal Gastrointestinal: Reports nausea; Denies abdominal pain, diarrhea or vomiting Genitourinary Genitourinary ED: Denies dysuria, hematuria or urinary frequency Musculoskeletal Musculoskeletal: Denies back pain, extremity pain or neck pain Integumentary Reports wounds; Denies rash Neurologic Neurologic: Reports headache(s); Denies paresthesias or weakness EXAM Physical Exam Const Vital Signs: 04/06/24 20:31 04/06/24 21:30 04/06/24 21:44 Temperature 97 F L Temperature Source Temporal Pulse Rate 85 62 Respiratory Rate 18 22 H Respiratory Effort Normal Respiratory Depth Normal Respiratory Pattern Normal Blood Pressure 131/84 H 132/79 H Blood Pressure Mean 99 96 Pulse Ox 99 99 Oxygen Delivery Method Room Air Room Air Room Air 04/06/24 22:00 04/06/24 23:00 04/07/24 00:03 Temperature 97.8 F Temperature Source Pulse Rate 58 L 58 L 64 Respiratory Rate 22 H 17 18 Respiratory Effort Respiratory Depth Respiratory Pattern Blood Pressure 117/78 125/75 H 112/66 Blood Pressure Mean 91 91 81 Pulse Ox 99 97 99 Oxygen Delivery Method Room Air Room Air Positive well nourished and well developed Constitutional Narrative: GCS 15 General Appearance ED: well developed and NAD HEENT Reports moist mucous membranes HEENT Narrative: Right ear: On inferior auricle near the tragus, 1 cm laceration additional puncture inferior to the tragus. Bleeding controlled with pressure. There was blood in the canal however TM was intact. Left ear: Normal. normocephalic Eyes EOMs intact bilaterally and conjunctivae normal General Eye ED: Yes normal appearance of both eyes Neck no lymphadenopathy and supple General: Negative for tenderness Chest Wall inspection of chest normal and palpation of chest normal Chest: Negative for tenderness Resp normal respiratory effort and normal air movement Effort and Inspection: symmetric chest movement; Negative for respiratory distress Cardio regular rate, regular rhythm and no murmurs Peripheral Pulses: pulses 2+ throughout GI normal to inspection, nondistended, normoactive bowel sounds and non-tender Palpation: Negative for guarding or rebound tenderness present Back/Spine no CVA tenderness, normal to inspection and no thoracic nor lumbar tenderness Extremity normal to inspection and full ROM General Extremety ED: Negative for edema or tenderness General Extremity: Negative for edema Neuro oriented x3, CN's II-XII intact bilaterally and no sensory deficits noted Sensorium / [place] (more content not included)... Normal [facility] Partial Thromboplast Timeon 04-06-2024 aPTT Coag (Bld) [Time] 27.4 s Normal 24.1-36.2 [facility] Comment on above: Performed By: #### M 8200.2200, M100.2200, L400.0001, M8200.2100 #### [facility] [address] [place], [address] Prothrombin Time w/INRon INR Coag (PPP) [Relative time] 1.1 {INR} Normal [facility] Comment on above: Performed By: #### M 8200.2200, M100.2200, L400.0001, M8200.2100 #### [facility] [address] [place], [address] PT Coag (PPP) [Time] 14.1 s Normal 11.7-14.9 [facility] Comment on above: Performed By: #### M 8200.2200, M100.2200, L400.0001, M8200.2100 #### [facility] [address] [place], [address] Spine Cervical without Contr ason 04-06-2024 Spine Cervical without Contras [facility] Services [address] [place] [address] Spine Cervical without Contras MR#: [id number] Acct: [id number] Name: SEVERO WHITE Rep #: [id number] : 2000 M 23 From: Luis herron MD PCP: Care Physician,No Primary Status: REG ER Study: Spine Cervical without Contras Date of Exam: 0 04/06/24 Exam# [id number] Ordering Dr: Julian Martinez DO [id number] EXAM: CT CERVICAL SPINE WITHOUT INTRAVENOUS CONTRAST CLINICAL INDICATION: polytrauma TECHNIQUE: Helically acquired images were obtained of the cervical spine without intravenous contrast. 2D reformatted images were reviewed. This CT exam was performed using one or more of the following dose reduction techniques: automated exposure control, adjustment of the mA and/or kV according to patient size, and/or use of iterative reconstruction technique. RADIATION DOSE: Total DLP: 488.81 mGy-cm. COMPARISON: No relevant prior studies available. FINDINGS: VERTEBRAE: Unremarkable. No compression fracture, posterior element fracture or facet dislocation. The odontoid is intact. No traumatic subluxation. No discrete lytic or blastic abnormality. Normal alignment. Normal craniocervical junction and cervicothoracic junction. DISCS/SPINAL CANAL/NEURAL FORAMINA: Unremarkable. Disc heights are preserved. No critical stenosis. No neural foraminal encroachment. SOFT TISSUES: Unremarkable. No prevertebral soft tissue swelling. LUNG APICES: Unremarkable as visualized. Clear. Visualized upper ribs are intact. CT/Spine Cervical without Contras IMPRESSION: Negative. No evidence of acute cervical spinal fracture or spondylolisthesis. Electronically Signed: Luis Shrestha MD at 23:24 EDT , CC: Dr. Julian Martinez, DO; No Primary Care Physician Stripper Cutter Machine: Signed Normal [facility] STREP A MOLECULAR (POC)on Procedural Control Valid [facility] Strep A (POCT) Negative Negative [facility] XR Chest PA and Lateralon IMPRESSION: No acute radiographic abnormality. Stripper Cutter Machine: [facility] Transcribe Date/Time: Jan 22 2024 12:03P Dictated by : SHANTANU SAVAGE MD This examination was interpreted and the report reviewed and electronically signed by: SHANTANU SAVAGE MD on Jan 22 2024 12:03PM [facility] DIVISION OF RADIOLOGY * * *Final Report* * * DATE OF EXAM: Jan 22 2024 11:58AM WOX 5291 - XR CHEST 2V FRONTAL/LAT / PROCEDURE REASON: Fever, unspecified fever cause * * * * Physician Interpretation * * * * EXAMINATION: CHEST RADIOGRAPH (2 VIEW FRONTAL & LATERAL) CLINICAL HISTORY: Fever, unspecified fever cause MQ: XC2_6 EXAM DATE/TIME: 01/22/2024 11:58 AM COMPARISON: No relevant prior studies available. RESULT: Lines, tubes, and devices: None. Lungs and pleura: No consolidation. No lung mass. No pleural effusion. No pneumothorax. Cardiomediastinal silhouette: Normal cardiomediastinal silhouette. Bones and soft tissues: Unremarkable. DIVISION OF RADIOLOGY Provider, [facility] [place] - 01/22/2024 * * *Final Report* * * DATE OF EXAM: Jan 22 2024 11:58AM WOX 5291 - XR CHEST 2V FRONTAL/LAT / PROCEDURE REASON: Fever, unspecified fever cause * * * * Physician Interpretation * * * * EXAMINATION: CHEST RADIOGRAPH (2 VIEW FRONTAL & LATERAL) CLINICAL HISTORY: Fever, unspecified fever cause MQ: XC2_6 EXAM DATE/TIME: 01/22/2024 11:58 AM COMPARISON: No relevant prior studies available. RESULT: Lines, tubes, and devices: None. Lungs and pleura: No consolidation. No lung mass. No pleural effusion. No pneumothorax. Cardiomediastinal silhouette: Normal cardiomediastinal silhouette. Bones and soft tissues: Unremarkable. IMPRESSION IMPRESSION: No acute radiographic abnormality. Stripper Cutter Machine: ESTHER Transcribe Date/Time: Jan 22 2024 12:03P Dictated by : SHANTANU SAVAGE MD This examination was interpreted and the report reviewed and electronically signed by: SHANTANU SAVAGE MD on Jan 22 2024 12:03PM EST [facility] Radiology Study observation (narrative) Hogler paula [facility] XR Chest PA and LateralOrder ed By: Ccf Provider on 01-22-2024 [facility] Urine Cultureon 10-03-2023 [facility] Culture exhibits no growth. Normal [facility] Comment on above: Performed By: #### M 8200.2200, M100.2200, L400.0001, M8200.2100 #### [facility] [address] [place], [address] Basophil percentageOrdered B y: Juan Gray on 10-02-2023 Basophil percentage >100 SEEN /hpf 0-5 [facility] Bilirubin Test strip Ql (U)O rdered By: Juan Gray on 10-02-2023 Bilirubin Ql (U) Negative Negative [facility] Culture, urineOrdered By: St maribell Gray on 10-02-2023 Bacteria identified Cx Nom (U) Culture exhibits no growth. [facility] Ketones Test strip Ql (U)Ord ered By: Juan Gray on 10-02-2023 Ketones Ql (U) Negative Negative [facility] - Chemistry and C hemistry - challengeon 10-02-2023 Bilirubin Ql (U) Negative [facility] Glucose Ql (U) Negative [facility] Ketones Ql (U)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 MD Work Phone: [facility] 10-24-2022 12:46-0500 Heart rate 79 /min Neto Brown MD Work Phone: [facility] 10-24-2022 12:46-0500 Respiratory rate 20 /min Neto Brown MD Work Phone: [facility] 10-24-2022 12:46-0500 SaO2% (BldA) [Mass fraction] 98 % Neto Brown MD Work Phone: [facility] 10-24-2022 12:46-0500 Systolic blood pressure 120 mm[Hg] Neto Bronw MD Work Phone: [facility] 07-19-2022 12:54-0500 Body temperature 98.29 [degF] Parth Maria APRN.DIRECTOR [employer]Y Work Phone: [facility] 07-19-2022 12:54-0500 Body weight 70.94 kg Parth Maria RN DIALYSIS.DIRECTOR [employer] Work Phone: [facility] 07-19-2022 12:54-0500 Diastolic blood pressure 84 mm[Hg] Parth Maria RN DIALYSIS.DIRECTOR [employer]CTION[employer]Y Work Phone: [facility] 07-19-2022 12:54-0500 Heart rate 89 /min Parth Maria RN DIALYSIS.DIRECTOR [employer]RECTION[employer]Y Work Phone: [facility] 07-19-2022 12:54-0500 Respiratory rate 18 /min Parth Maria RN DIALYSIS.DIRECTOR [employer]CTION[employer]Y Work Phone: [facility] 07-19-2022 12:54-0500 SaO2% (BldA) [Mass fraction] 97 % Parth Maria APRN.DIRECTOR [employer] Work Phone: [facility] 07-19-2022 12:54-0500 Systolic blood pressure 126 mm[Hg] Parth Maria RN DIALYSIS.DIRECTOR [employer]RECTIONAL [employer]ENCY Work Phone: [facility] 10-26-2021 10:02-0500 Body height 180.34 cm Bin M Playl Work Phone: [facility] Work Phone: 10-26-2021 10:02-0500 Body mass index (BMI) [Ratio] 23.12 kg/m2 Bin Gerald Playl Work Phone: [facility] Work Phone: 10-26-2021 10:02-0500 Body surface area Derived from formula 1.95 m2 Bin M Playl Work Phone: [facility] Work Phone: 10-26-2021 10:02-0500 Body temperature 97.4 [degF] Bin M Playl Work Phone: [facility] Work Phone: 10-26-2021 10:02-0500 Body weight 75.2 kg Bin M Playl Work Phone: [facility] Work Phone: 10-26-2021 10:02-0500 Diastolic blood pressure 62 mm[Hg] Bin M Playl Work Phone: [facility] Work Phone: 10-26-2021 10:02-0500 Heart rate 64 /min Bin M Playl Work Phone: [facility] Work Phone: 10-26-2021 10:02-0500 Respiratory rate 18 /min Bin M Playl Work Phone: [facility] Work Phone: 10-26-2021 10:02-0500 SaO2% (BldA) [Mass fraction] 97 % Bin M Playl Work Phone: [facility] Work Phone: 10-26-2021 10:02-0500 Systolic blood pressure 107 mm[Hg] Bin M Playl Work Phone: [facility] Work Phone: 10-26-2021 10:02-0500 69 1 Bin M Playl Work Phone: [facility] Work Phone: Comment on above: 2-20_SPerc 10-26-2021 10:02-0500 67 1 Bin M Playl Work Phone: [facility] Work Phone: Comment on above: 2-20_WPerc 10-26-2021 10:02-0500 55 1 Bin M Playl Work Phone: [facility] Work Phone: Comment on above: BMIPerc 05-12-2017 09:12-0400 BMI (Body Mass Index) 18.11 kg/m2 Hilda Bolanos LPN [facility] Work Phone: 05-12-2017 09:12-0400 Body Temperature 98.3 [degF] Hilda Bolanos LPN [facility] Work Phone: 05-12-2017 09:12-0400 BP Diastolic 68 mm[Hg] Hilda Bolanos LPN [facility] Work Phone: 05-12-2017 09:12-0400 BP Systolic 102 mm[Hg] Hilda Bolanos LPN [facility] Work Phone: 05-12-2017 09:12-0400 Height 163.83 cm Hilda Bolanos LPN [facility] Work Phone: 05-12-2017 09:12-0400 Pulse (Heart Rate) 71 /min Hilda Bolanos LPN [facility] Work Phone: 05-12-2017 09:12-0400 Respiratory Rate 15 /min Hilda Bolanos LPN [facility] Work Phone: 05-12-2017 09:12-0400 Weight 48.63 kg Hilda Bolanos LPN [facility] Work Phone: Encounters Encounter Date Encounter Type Care Provider Facility Start: 03-24-2025 End: 03-24-2025 Office outpatient visit 25 minutes Neto Brown MD Work Phone: [facility] Comment on above: Streptococcal pharyn gitis (Primary Dx); Sore throat Start: 03-24-2025 End: 03-24-2025 ambulatory SELF Facility:[facility] Start: 02-19-2025 End: 02-19-2025 Follow-up encounter Keisha MICHELLE Work Phone: [facility] Comment on above: Results Start: 02-18-2025 End: 02-18-2025 Patient encounter procedure Colleen Hung CRISTY.DIRECTOR CORRECTIONAL AGENCY Work Phone: [facility] Comment on above: Folliculitis (Primar y Dx); Concern about STD in male without diagnosis Start: 02-18-2025 End: 02-18-2025 ambulatory COLLEEN HUNG Facility:[facility] Start: 04-29-2024 End: 04-29-2024 Subsequent hospital visit by physician Xr [facility] Work Phone: Radiology Comment on above: Pain of right forear m [M79.631] Start: 04-29-2024 End: 04-29-2024 ambulatory ALLY FAUST Facility:[facility] Start: 04-29-2024 End: 04-29-2024 Patient encounter procedure Ally Faust RN DIALYSIS.DIRECTOR CORRECTIONAL AGENCY Work Phone: [facility] Comment on above: Pain of right forear m (Primary Dx) Start: 04-06-2024 End: 04-07-2024 Emergency department patient visit Julian Martinez Facility[facility] Start: 01-22-2024 End: 01-22-2024 Subsequent hospital visit by physician Xr [facility] Work Phone: Radiology Comment on above: Fever, unspecified f ever cause [R50.9] Start: 01-22-2024 End: 01-22-2024 Patient encounter procedure Trish Montemayor PA-C Work Phone: [facility] Comment on above: Viral illness (Prima ry Dx); Sore throat Start: 10-02-2023 End: 10-02-[address] Bin Gerber Work Phone: [facility] Work Phone: Start: 10-02-2023 End: 10-02-[address] Bin Gerber Work Phone: [facility] Work Phone: Start: 10-02-2023 End: 10-02-[address] Bin Gerber Work Phone: [facility] Work Phone: Start: 10-02-2023 End: 10-02-2023 ambulatory Juan MICHELLE Facility[facility] Start: 10-02-2023 End: 10-02-2023 ambulatory Juan MICHELLE Facility:[facility] Start: 04-25-2023 End: 04-25-2023 Patient encounter procedure Sylvia Garay APRN.DIRECTOR [employer]CTIONAL [employer]ENCY Work Phone: [facility] Comment on above: Acute cough (Primary Dx); Viral URI with cough Start: 12-30-2022 End: 12-30-2022 Subsequent hospital visit by physician Xr [facility] Work Phone: Radiology Comment on above: Pain [R52] Start: 12-30-2022 End: 12-30-2022 Patient encounter procedure Jennifer Suarez APRN.DIRECTOR [employer]Y Work Phone: [facility] Comment on above: Pain (Primary Dx) Start: 10-24-2022 End: 10-24-2022 Patient encounter procedure Neto Brown MD Work Phone: [facility] Comment on above: URI, acute (Primary Dx) Start: 07-19-2022 Telephone encounter Bin Gerber MD Work Phone: [facility] [place] Comment on above: Medication Problem Start: 07-19-2022 End: 07-19-2022 Patient encounter procedure Parth Maria APRN.DIRECTOR [employer]RECTIONAL AGENCY Work Phone: [facility] Comment on above: Sore throat (Primary Dx) Start: 12-29-2021 End: 12-29-[address] Bin Gerber Work Phone: [facility] Start: 12-15-2021 End: 12-15-[address] Bin Gerber Work Phone: [facility] Start: 10-26-2021 Office outpatient ne w 30 minutes Bin Gerber Work Phone: [facility] Work Phone: Start: 03-28-2021 End: 03-28-2021 Emergency department patient visit PHYSICIAN [facility] Procedures Date Procedure Procedure Detail Performing Clinician Start: 03-24-2025 Iadna streptococcus group a amplified probe tq Neto Brown MD Work Phone: Start: 04-29-2024 Radex wrist complete minimum 3 views Ally Nydia RN DIALYSIS.DIRECTOR [employer]RECTIONAL AGENCY Work Phone: Start: 01-22-2024 Radiologic exam chest 2 views Trish Montemayor PA-C Work Phone: Start: 01-22-2024 STREP A MOLECULAR (POC) Maximino clark RN DIALYSIS.DIRECTOR [employer]RECTIONAL AGENCY Work Phone: Start: 10-02-2023 B[address] nucleic acid assay Dr[address] Bin Gerber Work Phone: Start: 10-02-2023 Chlamydia trachomatis (PCR) Dr. Bin Gerber Work Phone: Start: 10-02-[address] Bin Gerber Work Phone: Start: 12-30-2022 Radex shoulder complete minimum 2 views Jennifer Suarez RN DIALYSIS.DIRECTOR [employer]CTION[employer]Y Work Phone: Start: 07-19-2022 STREP A MOLECULAR (POC) Parth Maria RN DIALYSIS.DIRECTOR [employer]RECTIONAL AGENCY Work Phone: Start: 12-29-2021 MRI of joint of lower extremity Dr. Bin Gerber Work Phone: Start: 12-15-2021 Plain x-ray of wrist Dr. Bin Gerber Work Phone: History of tonsillectomy History of tonsillectomy and adenoidectomy Dr. Bin Gerber Work Phone: Plan of Treatment Date Care Activity Detail Author Start: 02-18-2025 End: 05-20-2025 Chlamydia trachomatis+Neisseria gonorrhoeae DNA [Presence] in Unspecified specimen by TYLER with probe detection GONORRHEA/CHLAMYDIA NAAT Lab Routine Concern about STD in male without diagnosis Expected: 02/18/2025, Expires: 05/20/2025 [facility] Comment on above: Expected: 02/18/2025 , Expires: 05/20/2025 Start: 02-18-2025 End: 05-20-2025 Herpes simplex virus+Varicella zoster virus DNA [Presence] in Unspecified specimen by TYLER with probe detection HERPES SIMPLEX VIRUS (HSV-1 & HSV-2) AND VARICELLA ZOSTER VIRUS (VZV), NAAT, LESION SWAB Lab Routine Concern about STD in male without diagnosis Expected: 02/18/2025, Expires: 05/20/2025 [facility] Work Phone: Comment on above: Expected: 02/18/2025 , Expires: 05/20/2025 Start: 02-12-2025 Urine microalbumin profile [facility] Start: 04-21-2024 Covid-19 Vaccine ( season) Covid-19 Vaccine () [facility] Start: 04-21-2024 Covid-19 Vaccine () Covid-19 Vaccine () [facility] Start: 08-21-2023 Behavioral Health Screening Behavioral Health Screening [facility] Start: 04-21-2023 Covid-19 Vaccine ( season) Covid-19 Vaccine ( season) [facility] Start: 10-24-2022 End: 11-07-2022 SARS-CoV-2 (COVID-19) RNA [Presence] in Respiratory specimen by TYLER with probe detection [facility] Work Phone: Comment on above: Expected: 10/24/2022 , Expires: 11/07/2022 Start: 08-21-2022 DEPRESSION ASSESSMENT DEPRESSION ASS ESSMENT [facility] Start: 08-21-2021 DEPRESSION ASSESSMENT DEPRESSION ASS ESSMENT [facility] Start: 12-24-2020 Meningococcal B Vacc ine (2 of 2 - Bexsero SCDM 2-dose series) Meningococcal B Vaccine (2 of 2 - Bexsero SCDM 2-dose series) [facility] Start: 07-24-2020 Meningococcal B Vacc ine: Consider Based On Risk (2 of 2 - Risk Bexsero 2-dose series) Meningococcal B Vaccine: Consider Based On Risk (2 of 2 - Risk Bexsero 2-dose series) [facility] Start: 07-24-2020 MENINGOCOCCAL B: Consider based on risk (2 of 2 - Risk Bexsero 2-dose series) MENINGOCOCCAL B: Consider based on risk (2 of 2 - Risk Bexsero 2-dose series) [facility] Start: 2020 Anxiety Screening Anxiety Screening [facility] Start: 2020 Depression Screening Depression Scre ening [facility] Start: 2020 HEPATITIS C SCREENING HEPATITIS C [facility] Start: 2020 Hepatitis C screening Hepatitis C [facility] Start: 2020 HIV SCREENING HIV SCREENING [facility] Start: 2020 HIV screening HIV Screening [facility] Start: 05-12-2017 End: 05-12-2017 Appointment Appointment [facility] Work Phone: Start: 2016 PEDS TO ADULT TRANSI TION ANNUAL ASSESSMENT PEDS TO ADULT TRANSITION ANNUAL ASSESSMENT [facility] Start: 2014 PEDS TO ADULT TRANSI TION INITIAL DISCUSSION PEDS TO ADULT TRANSITION INITIAL DISCUSSION [facility] Start: 2002 COVID-19 VACCINE (#1) COVID-19 VACCI NE (#1) [facility] Patient Education ACUTE%20COUGH [facility] sasha Work Phone: Immunizations Immunization Date Immunization Notes Care Provider Renea juarez 06-26-2020 influenza, injectabl e, quadrivalent, contains preservative Parth Crow RN DIALYSIS.DIRECTOR CORRECTIONAL AGENCY Work Phone: [facility] 06-26-2020 meningococcal B vacc ine, recombinant, OMV, adjuvanted Parth Crow RN DIALYSIS.DIRECTOR [employer]RECTIONAL AGENCY Work Phone: [facility] 08-22-2019 influenza, live, intranasal, quadrivalent Parth Crow RN DIALYSIS.DIRECTOR CORRECTIONAL AGENCY Work Phone: [facility] 06-26-2018 influenza, live, intranasal, quadrivalent Parth Crow RN DIALYSIS.DIRECTOR CORRECTIONAL AGENCY Work Phone: [facility] 06-26-2018 meningococcal polysaccharide (groups A, C, Y and W-135) diphtheria toxoid conjugate vaccine (MCV4P) Parth Maria RN DIALYSIS.DIRECTOR CORRECTIONAL AGENCY Work Phone: [facility] 04-03-2017 Human Papillomavirus 9-valent vaccine Parth Maria APRN.[facility] Work Phone: [facility] Work Phone: 07-09-2016 Human Papillomavirus 9-valent vaccine Parth Maria RN DIALYSIS.[facility] Work Phone: [facility] 04-09-2016 Human Papillomavirus 9-valent vaccine Parth Maria RN DIALYSIS.[facility] Work Phone: [facility] 02-12-2015 meningococcal polysaccharide (groups A, C, Y and W-135) diphtheria toxoid conjugate vaccine (MCV4P) Parth Maria RN DIALYSIS.[facility] Work Phone: [facility] 02-12-2015 tetanus toxoid, redu milton diphtheria toxoid, and acellular pertussis vaccine, adsorbed Parth Maria RN DIALYSIS.[facility] Work Phone: [facility] 07-13-2011 influenza virus vacc ine, live, attenuated, for intranasal use Parthwendi Maria APRN.[facility] Work Phone: [facility] Work Phone: 08-20-2008 influenza virus vacc ine, live, attenuated, for intranasal use Parth King RN DIALYSIS.[facility] Work Phone: [facility] Work Phone: 09-18-2007 diphtheria, tetanus toxoids and acellular pertussis vaccine Parth Maria RN DIALYSIS.[facility] Work Phone: [facility] Work Phone: 09-18-2007 influenza virus vacc ine, live, attenuated, for intranasal use Parth Maria RN DIALYSIS.DIRECTOR [employer]RECTIONAL [employer]ENCY Work Phone: [facility] Work Phone: 09-18-2007 measles, mumps and rubella virus vaccine Parth Maria RN DIALYSIS.[facility] Work Phone: [facility] Work Phone: 09-18-2007 poliovirus vaccine, inactivated Parth Crow RN DIALYSIS.[facility] Work Phone: [facility] Work Phone: 10-10-2003 diphtheria, tetanus toxoids and acellular pertussis vaccine Parth Maria APRN.[facility] Work Phone: [facility] Work Phone: 10-10-2003 pneumococcal conjuga te vaccine, 7 valent Parth Crow RN DIALYSIS.DIRECTOR [employer]RE[employer]Y Work Phone: [facility] Work Phone: 10-10-2003 varicella virus vaccine Carlosromana lopez Crow RN DIALYSIS.DIRECTOR [employer]RECTIONAL [employer]ENCY Work Phone: [facility] Work Phone: 06-13-2003 haemophilus influenz ae type b vaccine, HbOC conjugate Parth Crow RN DIALYSIS.[facility] Work Phone: [facility] Work Phone: 06-13-2003 measles, mumps and rubella virus vaccine Parth King R[facility]ETTAN.[facility] Work Phone: [facility] Work Phone: 03-05-2003 hepatitis B vaccine, pediatric or pediatric/adolescent dosage Parth Maria APRN.DIRECTOR [employer] Work Phone: [facility] Work Phone: 2002 diphtheria, tetanus toxoids and acellular pertussis vaccine Parth King [facility] Work Phone: [facility] Work Phone: 2002 haemophilus influenz ae type b vaccine, HbOC conjugate Parth Maria APRN.[facility] Work Phone: [facility] Work Phone: 2002 pneumococcal conjuga te vaccine, 7 valent Parth Maria RN DIALYSIS.DIRECTOR CORRECTIONAL [employer]ENCY Work Phone: [facility] Work Phone: 2002 poliovirus vaccine, inactivated Parth Maria APRN.DIRECTOR [employer]RE[employer]ENCY Work Phone: [facility] Work Phone: 2002 diphtheria, tetanus toxoids and acellular pertussis vaccine Parth Maria APRN.[facility] Work Phone: [facility] Work Phone: 2002 haemophilus influenz ae type b vaccine, HbOC conjugate Parth Crow RN DIALYSIS.[facility] Work Phone: [facility] Work Phone: 2002 pneumococcal conjuga te vaccine, 7 valent Parth Crow RN DIALYSIS.[facility] Work Phone: [facility] Work Phone: 2002 poliovirus vaccine, inactivated Parth Crow RN DIALYSIS.DIRECTOR CORRECTIONAL AGENCY Work Phone: [facility] Work Phone: 2002 diphtheria, tetanus toxoids and acellular pertussis vaccine Parth Crow RN DIALYSIS.[facility] Work Phone: [facility] Work Phone: 2002 haemophilus influenz ae type b vaccine, HbOC conjugate Parth Crow RN DIALYSIS.[facility] Work Phone: [facility] Work Phone: 2002 pneumococcal conjuga te vaccine, 7 valent Parth Crow RN DIALYSIS.[facility] Work Phone: [facility] Work Phone: 2002 poliovirus vaccine, inactivated Parth Crow RN DIALYSIS.[facility] Work Phone: [facility] Work Phone: 2002 hepatitis B vaccine, pediatric or pediatric/adolescent dosage Parth Crow RN DIALYSIS.[facility] Work Phone: [facility] Work Phone: 2002 hepatitis B vaccine, pediatric or pediatric/adolescent dosage Parth Crow RN DIALYSIS.[facility] Work Phone: [facility] Work Phone: Payers Date Payer Category Payer [facility] BLUE CARD PPO OOS [id number] 2024 Unknown [id number] 2023 Private Health Insurance [id number] 2023 Self-pay [id number] 2021 Private Health Insurance NICOLEROMANA Paulino YG OAP [id number] 2021-Present [phone] [address] [place] [address] Open Access [id number] 2021 Private Health Insurance [id number] 2018 Unknown [id number] 2002 Unknown [id number] Unknown ANTHEM Unknown [id number] Unknown [id number] Unknown [id number] Social History Date Type Detail Facility Start: 09-16-2022 End: 04-25-2023 Non-smoker Non-smoker [facility] Work Phone: Start: 12-15-2021 End: 10-02-2023 Tobacco smoking status NEIS Unknown if ever smoked [facility] Start: 2002 Sex Assigned At Male W [facility] Start: 07-19-2022 Tobacco smoking stat us NHIS Never smoked tobacco [facility] Start: 07-19-2022 Tobacco use and exposure User of smokeless tobacco [facility] Start: 07-19-2022 End: 04-29-2024 Alcohol intake Current non-drinker of alcohol (finding) [facility] Start: 07-19-2022 Tobacco Comment chew [facility] Start: 2002 Sex Assigned At Not on file [facility] Start: 07-09-2022 End: 07-19-2022 Exposure to SARS-CoV-2 (event) Not sure [facility] Start: 09-16-2022 End: 04-25-2023 Tobacco use panel [facility] National Score (1-100), lower number is lower risk 56 [facility] Functional Status Date Assessment Result Facility 03-09-2015 Are you deaf, or do you have serious difficulty hearing No 03/09/2015 9:23 AM EDKaela Agrawal [facility] No [facility] 03-09-2015 Are you blind, or do you have serious difficulty seeing, even when wearing glasses No 03/09/2015 9:23 AM Kaela Troncoso [facility] No [facility] 03-09-2015 Do you have serious difficulty walking or climbing stairs No 03/09/2015 9:23 AM EDKaela Agrawal [facility] No [facility] 03-09-2015 Do you have difficul ty dressing or bathing No 03/09/2015 9:23 AM EDKaela Agrawal [facility] No [facility] Mental Status Date Assessment Result Facility 03-09-2015 Because of a physica l, mental, or emotional condition, do you have serious difficulty concentrating, remembering, or making decisions No 03/09/2015 9:23 AM Kaela Troncoso Cma No [facility] Clinical Notes 05-02-2011 to 03-24-2025 Neto Brown MD - 03/24/2025 4:56 PM EDTTelephone Encounter - Madeleine Phillips RN - 02/19/2025 10:37 AM EDTTelephone Encounter - Madeleine Phillips RN - 02/19/2025 10:37 AM EDTPatient Instructions Note Date & Type Note Facility 03-24-2025 Note HNO ID: [id number] Author: NETO BROWN MD Service: ? Author Type: Physician Type: Progress Notes Filed: 03/24/2025 17:01 Note Text: [facility] KILEY White is a 24 year old male. Patient presents with: Sore Throat: Bump on back right side of tongue Patient presents with sore throat since yesterday. He also feels fatigued. Denies nasal congestion, rhinorrhea, cough, or fever. He has used a cough drops for symptom relief. Sore Throat Review of Systems HENT: Positive for sore throat. Objective BP 112/84 Pulse 80 Temp 37.2 ?C (98.9 ?F) Resp 17 Wt 74.9 kg (165 lb 2 oz) SpO2 98% Physical Exam Constitutional: General: He is not in acute distress. Appearance: He is not ill-appearing. HENT: Right Ear: Tympanic membrane and ear canal normal. Left Ear: Tympanic membrane and ear canal normal. Nose: No congestion. Mouth/Throat: Pharynx: Posterior oropharyngeal erythema present. No oropharyngeal exudate. Eyes: Extraocular Movements: Extraocular movements intact. Conjunctiva/sclera: Conjunctivae normal. Pupils: Pupils are equal, round, and reactive to light. Cardiovascular: Rate and Rhythm: Normal rate and regular rhythm. Heart sounds: No murmur heard. Pulmonary: Effort: No respiratory distress. Breath sounds: No wheezing, rhonchi or rales. Musculoskeletal: Cervical back: Neck supple. Lymphadenopathy: Cervical: Cervical adenopathy (mild) present. Neurological: Mental Status: He is alert. {ASSESSMENT/PLAN: 1. Streptococcal pharyngitis - ICD9: 034.0, ICD10: J02.0 (primary diagnosis) 2. Sore throat - ICD9: 462, ICD10: J02.9 - Rapid molecular strep test positive - Discussed supportive care treatment with as needed analgesia. - Contagious disease precautions discussed- including considered contagious until on antibiotics for 24 hours - STREP A MOLECULAR (POC) - AMOXICILLIN 500 MG CAPSULE Neto Brown MD Differential Diagnoses - Strep coccal pharyngitis is more likely for the following reason(s): suggested by HANDP and consistent with laboratory studies Procedures [facility] 03-24-2025 History of Presen t illness Narrative [facility] KILEY Jes White is a 24 year old male. Patient presents with: Sore Throat: Bump on back right side of tongue Patient presents with sore throat since yesterday. He also feels fatigued. Denies nasal congestion, rhinorrhea, cough, or fever. He has used a cough drops for symptom relief. Sore Throat Review of Systems HENT: Positive for sore throat. Objective BP 112/84 Pulse 80 Temp 37.2 C (98.9 F) Resp 17 Wt 74.9 kg (165 lb 2 oz) SpO2 98% Physical Exam Constitutional: General: He is not in acute distress. Appearance: He is not ill-appearing. HENT: Right Ear: Tympanic membrane and ear canal normal. Left Ear: Tympanic membrane and ear canal normal. Nose: No congestion. Mouth/Throat: Pharynx: Posterior oropharyngeal erythema present. No oropharyngeal exudate. Eyes: Extraocular Movements: Extraocular movements intact. Conjunctiva/sclera: Conjunctivae normal. Pupils: Pupils are equal, round, and reactive to light. Cardiovascular: Rate and Rhythm: Normal rate and regular rhythm. Heart sounds: No murmur heard. Pulmonary: Effort: No respiratory distress. Breath sounds: No wheezing, rhonchi or rales. Musculoskeletal: Cervical back: Neck supple. Lymphadenopathy: Cervical: Cervical adenopathy (mild) present. Neurological: Mental Status: He is alert. {ASSESSMENT/PLAN: 1. Streptococcal pharyngitis - ICD9: 034.0, ICD10: J02.0 (primary diagnosis) 2. Sore throat - ICD9: 462, ICD10: J02.9 - Rapid molecular strep test positive - Discussed supportive care treatment with as needed analgesia. - Contagious disease precautions discussed- including considered contagious until on antibiotics for 24 hours - STREP A MOLECULAR (POC) - AMOXICILLIN 500 MG CAPSULE Neto Brown MD Differential Diagnoses - Strep coccal pharyngitis is more likely for the following reason(s): suggested by H&P and consistent with laboratory studies Procedures documented in this encounter [facility] 02-19-2025 Telephone encounter Note Patient notified. Madeleine Phillips RN [facility] 02-19-2025 Miscellaneous Notes Patient notified. Madeleine Phillips RN Please contact patient and let him know that he did test positive for herpes simplex type I. Please notify all partners of positive herpes swab. I have sent a medication to his pharmacy. Take as prescribed. Attempted to call patient, no voicemail box. Please try again later. Please let patient know gonorrhea and Chlamydia testing was negative. We are still awaiting herpes swab result documented in this encounter [facility] 02-19-2025 Telephone encounter Note Please contact patient and let him know that he did test positive for herpes simplex type I. Please notify all partners of positive herpes swab. I have sent a medication to his pharmacy. Take as prescribed. Attempted to call patient, no voicemail box. Please try again later. [facility] 02-19-2025 Telephone encounter Note Please let patient know gonorrhea and Chlamydia testing was negative. We are still awaiting herpes swab result [facility] 02-18-2025 Note HNO ID: [id number] Author: COLLEEN HUNG APRN.DIRECTOR [employer] Service: ? Author Type: Nurse Practitioner Type: Progress Notes Filed: 02/18/2025 15:56 Note Text: This note was created using Bswiftriter. Subjective Severo White is a 24 year old male. HPI Over the last day or 2 patient has noticed irritated bumps over the suprapubic region and the shaft of the penis. He states they are not painful or itchy per se. Denies any recent fevers penile drainage difficulty with urination. He is sexually active with a stable sexual partner and denies any known STDs of the partner. Patient does shave his suprapubic region. Review of Systems As above Objective BP 106/64 Pulse 82 Temp 36.7 ?C (98.1 ?F) Resp 16 Wt 76.4 kg (168 lb 6.9 oz) SpO2 99% Physical Exam Vitals and nursing note reviewed. Constitutional: General: He is not in acute distress. Appearance: Normal appearance. He is not ill-appearing. HENT: Head: Normocephalic. Pulmonary: Effort: Pulmonary effort is normal. Genitourinary: Comments: Scattered irritated papular rash with some eroded lesions across the shaved suprapubic region and across the top of the penile shaft. Lesions are approximately 1-2 mm in diameter. Some papular areas have a purulent center Musculoskeletal: General: Normal range of motion. Skin: General: Skin is warm. Neurological: General: No focal deficit present. Mental Status: He is alert and oriented to person, place, and time. Psychiatric: Mood and Affect: Mood normal. Behavior: Behavior normal. Assessment and Plan ASSESSMENT/PLAN: 1. Folliculitis - ICD9: 704.8, ICD10: L73.9 (primary diagnosis) I do feel that the patient's presentation is more consistent with folliculitis however for confirmation STD testing including GC chlamydia and herpes swabs were performed. No treatment was initiated as patient denies any specific exposures. Patient also denying any drainage or urinary difficulty. Denies any recent fevers 2. Concern about STD in male without diagnosis - ICD9: V65.5, ICD10: Z71.1 As above - HERPES SIMPLEX VIRUS (HSV-1 AND HSV-2) AND VARICELLA ZOSTER VIRUS (VZV), NAAT, LESION SWAB - GONORRHEA/CHLAMYDIA NAAT Colleen HungCRISTY.KERVIN [facility] 02-18-2025 History of Presen t illness Narrative This note was created using Apruveter. Subjective Severo White is a 24 year old male. HPI Over the last day or 2 patient has noticed irritated bumps over the suprapubic region and the shaft of the penis. He states they are not painful or itchy per se. Denies any recent fevers penile drainage difficulty with urination. He is sexually active with a stable sexual partner and denies any known STDs of the partner. Patient does shave his suprapubic region. Review of Systems As above Objective BP 106/64 Pulse 82 Temp 36.7 C (98.1 F) Resp 16 Wt 76.4 kg (168 lb 6.9 oz) SpO2 99% Physical Exam Vitals and nursing note reviewed. Constitutional: General: He is not in acute distress. Appearance: Normal appearance. He is not ill-appearing. HENT: Head: Normocephalic. Pulmonary: Effort: Pulmonary effort is normal. Genitourinary: Comments: Scattered irritated papular rash with some eroded lesions across the shaved suprapubic region and across the top of the penile shaft. Lesions are approximately 1-2 mm in diameter. Some papular areas have a purulent center Musculoskeletal: General: Normal range of motion. Skin: General: Skin is warm. Neurological: General: No focal deficit present. Mental Status: He is alert and oriented to person, place, and time. Psychiatric: Mood and Affect: Mood normal. Behavior: Behavior normal. Assessment and Plan ASSESSMENT/PLAN: 1. Folliculitis - ICD9: 704.8, ICD10: L73.9 (primary diagnosis) I do feel that the patient's presentation is more consistent with folliculitis however for confirmation STD testing including GC chlamydia and herpes swabs were performed. No treatment was initiated as patient denies any specific exposures. Patient also denying any drainage or urinary difficulty. Denies any recent fevers 2. Concern about STD in male without diagnosis - ICD9: V65.5, ICD10: Z71.1 As above - HERPES SIMPLEX VIRUS (HSV-1 & HSV-2) AND VARICELLA ZOSTER VIRUS (VZV), NAAT, LESION SWAB - GONORRHEA/CHLAMYDIA NAAT Colleen Hung APRN.CNP documented in this encounter [facility] 04-29-2024 History of Presen t illness Narrative Radiology Service Progress Note PATIENT NAME: Severo White DATE OF SERVICE: April 29, 2024 TIME: 5:39 PM PATIENT IDENTITY VERIFICATION COMPLETED USING TWO (2) IDENTIFIERS: Name and Date of confirmed by patient verbally. FALL SCREENING: Has the patient had 2 falls in the last year or 1 fall with injury or currently using an Ambulatory Assistive Device (Walker, Cane, Wheelchair, Crutches, etc.)? No PATIENT GENDER DATA: Male PATIENT RELEVANT IMPLANT DATA REVIEWED: Not Applicable PATIENT PRESENTS WITH AN IMPLANTABLE OR ATTACHED COMPONENT DESIGN ENGINEER: No RADIOLOGY DEPARTMENT: General X-ray: Exam(s) Completed: Upper Extremity X-Ray(s): Wrist, right PERIPHERAL IV DATA: Not applicable SIGNED BY: UNA Crabtree) April 29, 2024 5:39 PM documented in this encounter [facility] 04-29-2024 Note HNO ID: [id number] Author: NIKOLAY WELSH RT(Lolly) Service: Radiology Author Type: Technologist Type: Progress Notes Filed: 04/29/2024 17:46 Note Text: Radiology Service Progress Note PATIENT NAME: Severo White DATE OF SERVICE: April 29, 2024 TIME: 5:39 PM PATIENT IDENTITY VERIFICATION COMPLETED USING TWO (2) IDENTIFIERS: Name and Date of confirmed by patient verbally. FALL SCREENING: Has the patient had 2 falls in the last year or 1 fall with injury or currently using an Ambulatory Assistive Device (Walker, Cane, Wheelchair, Crutches, etc.)? No PATIENT GENDER DATA: Male PATIENT RELEVANT IMPLANT DATA REVIEWED: Not Applicable PATIENT PRESENTS WITH AN IMPLANTABLE OR ATTACHED COMPONENT DESIGN ENGINEER: No RADIOLOGY DEPARTMENT: General X-ray: Exam(s) Completed: Upper Extremity X-Ray(s): Wrist, right PERIPHERAL IV DATA: Not applicable SIGNED BY: Nikolay Welsh, RT(R) April 29, 2024 5:39 PM [facility] 04-29-2024 Note HNO ID: [id number] Author: ALLY FAUST APRN.KERVIN Service: ? Author Type: Nurse Practitioner Type: Progress Notes Filed: 04/29/2024 19:22 Note Text: This note was created using NoteWriter. Subjective Severo White is a 23 year old male. 23 year old male with no PMH presents for arm pain. Acute onset this past Monday04/27/24 Endorses his right forearm was stepped on by a bull. Right forearm +pain +difficultly with picking up and handling items +tingling Denies head injury or LOC Denies neck or back pain Denies abdominal pain Of note, he had a prior history of fracture of right forearm. States pins and rods related to prior bull stepping on his right forearm. The history is provided by the patient. No american sign language interpreter was used. Trauma This is a new problem. The current episode started in the past 7 days. The problem occurs constantly. The problem has been unchanged. Pertinent negatives include no abdominal pain, anorexia, arthralgias, change in bowel habit, chest pain, chills, congestion, coughing, diaphoresis, fatigue, fever, headaches, joint swelling, myalgias, nausea, neck pain, numbness, rash, sore throat, swollen glands, urinary symptoms, vertigo, visual change, vomiting or weakness. Exacerbated by: touching and range of motion. He has tried nothing for the symptoms. The treatment provided no relief. PAST MEDICAL HISTORY No date: Environmental allergies 2008: NEGATIVE HISTORY OF Comment: Normal Color Vision PAST SURGICAL HISTORY No date: CIRCUMCISION No date: RPR TUNICA VAGINALIS HYDROCELE BOTTLE TYPE 2009: TONSILLECTOMY AND ADENOIDECTOMY ALLERGIES Cats, Dogs, Dust Mites, Grass Pollen, Horse Dander, and Wheat MEDICATIONS albuterol HFA (VENTOLIN HFA) 90 mcg/actuation inhaler Inhale 2 Puffs as instructed every 4 hours as needed for wheezing/shortness of breath. Cetirizine (ZYRTEC) 10 mg cap Take by mouth. albuterol HFA (PROVENTIL HFA, VENTOLIN HFA) 90 mcg/actuation inhaler Inhale 2 Puffs as instructed every 4 hours as needed for wheezing/shortness of breath. benzonatate (TESSALON PERLES) 100 mg capsule Take 2 capsules by mouth three times a day as needed. (Patient not taking: Reported on 04/29/2024) predniSONE (DELTASONE) 10 mg tablet Take 4 tabs daily for 3 days, then 2 tabs daily for 3 days, then 1 tab daily for 3 days with food. (Patient not taking: Reported on 01/22/2024) FAMILY HISTORY Problem Relation Age of Onset Asthma Father Hypertension Father Social History Tobacco Use Smoking status: Never Smokeless tobacco: Current Tobacco comments: chew Substance Use Topics Alcohol use: No Drug use: No Review of Systems Constitutional: Negative for chills, diaphoresis, fatigue and fever. HENT: Negative for congestion and sore throat. Respiratory: Negative for apnea, cough, choking and chest tightness. Cardiovascular: Negative for chest pain. Gastrointestinal: Negative for abdominal pain, anorexia, change in bowel habit, nausea and vomiting. Musculoskeletal: Negative for arthralgias, joint swelling, myalgias and neck pain. Right forearm Skin: Negative for color change, pallor and rash. Neurological: Negative for vertigo, weakness, numbness and headaches. Hematological: Negative for adenopathy. Does not bruise/bleed easily. Psychiatric/Behavioral: Negative for agitation and behavioral problems. Objective BP 122/78 Pulse 70 Temp 36.2 ?C (97.2 ?F) Resp 20 Wt 78.7 kg (173 lb 8 oz) SpO2 100% Physical Exam Vitals and nursing note reviewed. Constitutional: General: He is not in acute distress. Appearance: Normal appearance. He is not ill-appearing, toxic-appearing or diaphoretic. HENT: Head: Normocephalic and atraumatic. Right Ear: External ear normal. Left Ear: External ear normal. Nose: Nose normal. No congestion or rhinorrhea. Mouth/Throat: Mouth: Mucous membranes are moist. Pharynx: Oropharynx is clear. No oropharyngeal exudate or posterior oropharyngeal erythema. Eyes: General: Right eye: No discharge. Left eye: No discharge. Extraocular Movements: Extraocular movements intact. Conjunctiva/sclera: Conjunctivae normal. Pupils: Pupils are equal, round, and reactive to light. Cardiovascular: Rate and Rhythm: Normal rate and regular rhythm. Pulses: Normal pulses. Heart sounds: Normal heart sounds. No murmur heard. No friction rub. No gallop. Pulmonary: Effort: Pulmonary effort is normal. No respiratory distress. Breath sounds: Normal breath sounds. No stridor. No wheezing, rhonchi or rales. Chest: Chest wall: No tenderness. Abdominal: General: Abdomen is flat. There is no distension. Palpations: Abdomen is soft. There is no mass. Tenderness: There is no abdominal tenderness. There is no guarding or rebound. Hernia: No hernia is present. Musculoskeletal: General: Tenderness and signs of injury present. No swelling or deformity. Cervical back: Normal ra (more content not included)... [facility] 04-29-2024 History of Presen t illness Narrative This note was created using [email or web address] outdoors. Subjective Severo White is a 23 year old male. 23 year old male with no PMH presents for arm pain. Acute onset this past Monday04/27/24 Endorses his right forearm was stepped on by a bull. Right forearm +pain +difficultly with picking up and handling items +tingling Denies head injury or LOC Denies neck or back pain Denies abdominal pain Of note, he had a prior history of fracture of right forearm. States pins and rods related to prior bull stepping on his right forearm. The history is provided by the patient. No american sign language interpreter was used. Trauma This is a new problem. The current episode started in the past 7 days. The problem occurs constantly. The problem has been unchanged. Pertinent negatives include no abdominal pain, anorexia, arthralgias, change in bowel habit, chest pain, chills, congestion, coughing, diaphoresis, fatigue, fever, headaches, joint swelling, myalgias, nausea, neck pain, numbness, rash, sore throat, swollen glands, urinary symptoms, vertigo, visual change, vomiting or weakness. Exacerbated by: touching and range of motion. He has tried nothing for the symptoms. The treatment provided no relief. PAST MEDICAL HISTORY No date: Environmental allergies 2008: NEGATIVE HISTORY OF Comment: Normal Color Vision PAST SURGICAL HISTORY No date: CIRCUMCISION No date: RPR TUNICA VAGINALIS HYDROCELE BOTTLE TYPE 2009: TONSILLECTOMY & ADENOIDECTOMY <AGE 12 ALLERGIES Cats, Dogs, Dust Mites, Grass Pollen, Horse Dander, and Wheat MEDICATIONS albuterol HFA (VENTOLIN HFA) 90 mcg/actuation inhaler Inhale 2 Puffs as instructed every 4 hours as needed for wheezing/shortness of breath. Cetirizine (ZYRTEC) 10 mg cap Take by mouth. albuterol HFA (PROVENTIL HFA, VENTOLIN HFA) 90 mcg/actuation inhaler Inhale 2 Puffs as instructed every 4 hours as needed for wheezing/shortness of breath. benzonatate (TESSALON PERLES) 100 mg capsule Take 2 capsules by mouth three times a day as needed. (Patient not taking: Reported on 04/29/2024) predniSONE (DELTASONE) 10 mg tablet Take 4 tabs daily for 3 days, then 2 tabs daily for 3 days, then 1 tab daily for 3 days with food. (Patient not taking: Reported on 01/22/2024) FAMILY HISTORY Problem Relation Age of Onset Asthma Father Hypertension Father Social History Tobacco Use Smoking status: Never Smokeless tobacco: Current Tobacco comments: chew Substance Use Topics Alcohol use: No Drug use: No Review of Systems Constitutional: Negative for chills, diaphoresis, fatigue and fever. HENT: Negative for congestion and sore throat. Respiratory: Negative for apnea, cough, choking and chest tightness. Cardiovascular: Negative for chest pain. Gastrointestinal: Negative for abdominal pain, anorexia, change in bowel habit, nausea and vomiting. Musculoskeletal: Negative for arthralgias, joint swelling, myalgias and neck pain. Right forearm Skin: Negative for color change, pallor and rash. Neurological: Negative for vertigo, weakness, numbness and headaches. Hematological: Negative for adenopathy. Does not bruise/bleed easily. Psychiatric/Behavioral: Negative for agitation and behavioral problems. Objective BP 122/78 Pulse 70 Temp 36.2 C (97.2 F) Resp 20 Wt 78.7 kg (173 lb 8 oz) SpO2 100% Physical Exam Vitals and nursing note reviewed. Constitutional: General: He is not in acute distress. Appearance: Normal appearance. He is not ill-appearing, toxic-appearing or diaphoretic. HENT: Head: Normocephalic and atraumatic. Right Ear: External ear normal. Left Ear: External ear normal. Nose: Nose normal. No congestion or rhinorrhea. Mouth/Throat: Mouth: Mucous membranes are moist. Pharynx: Oropharynx is clear. No oropharyngeal exudate or posterior oropharyngeal erythema. Eyes: General: Right eye: No discharge. Left eye: No discharge. Extraocular Movements: Extraocular movements intact. Conjunctiva/sclera: Conjunctivae normal. Pupils: Pupils are equal, round, and reactive to light. Cardiovascular: Rate and Rhythm: Normal rate and regular rhythm. Pulses: Normal pulses. Heart sounds: Normal heart sounds. No murmur heard. No friction rub. No gallop. Pulmonary: Effort: Pulmonary effort is normal. No respiratory distress. Breath sounds: Normal breath sounds. No stridor. No wheezing, rhonchi or rales. Chest: Chest wall: No tenderness. Abdominal: General: Abdomen is flat. There is no distension. Palpations: Abdomen is soft. There is no mass. Tenderness: There is no abdominal tenderness. There is no guarding or rebound. Hernia: No hernia is present. Musculoskeletal: General: Tenderness and signs of injury present. No swelling or deformity. Cervical back: Normal range of motion and neck supple. No rigidity or tenderness. Right lower leg: No edema. Left lower leg: No edema. Comments: Right forearm with healed surgical scar Diffuse TTP noted No obvious deformity, break in skin, ecchymosis or erythema +neuro +sensation +guarding with ROM Lymphadenopathy: Cervical: No cervical adenopathy. Skin: General: Skin is warm and dry. Capillary Refill: Capillary refill takes less than 2 seconds. Coloration: Skin is not jaundiced or pale. Findings: No bruising, lesion or rash. Neurological: General: No focal deficit present. Mental Status: He is alert and oriented to person, place, and time. Cranial Nerves: No cranial nerve deficit. Sensory: No sensory deficit. Motor: No weakness. Coordination: Coordination normal. Gait: Gait normal. Deep Tendon Reflexes: Reflexes normal. Psychiatric: Mood and Affect: Mood normal. Behavior: Behavior normal. Thought Content: Thought content normal. Assessment and Plan ASSESSMENT/PLAN: 1. Pain of right forearm - ICD9: 729.5, ICD10: M79.631 Acute onset of sx 04/27/24 States he was stepped on by a bull. No head injury or LOC - XR WRIST GENERAL 3V PA/LAT/OBL RIGHT-negative RICE therapy OTC analgesics F/U with PCP and or ortho for continued sx Ally Faust APRN.KERVIN documented in this encounter [facility] 01-22-2024 History of Presen t illness Narrative This note was created using [email or web address] outdoors. Subjective Severo White is a 23 year old male. HPI Patient presents with cough, congestion, fever over the past 5 days. He did take a multisymptom Mucinex this morning, he is not sure if there was Tylenol in that. Temp right now is 99.9. He states cough and fever have been bothering him the most. Denies history of asthma. No vomiting or diarrhea. He is also had a sore throat. Denies sick contacts. Denies doing a COVID test [id number]. Review of Systems Constitutional: Positive for chills, fatigue and fever. HENT: Positive for congestion, rhinorrhea and sore throat. Negative for ear pain. Respiratory: Positive for cough, shortness of breath and wheezing. Negative for chest tightness. Cardiovascular: Negative. Gastrointestinal: Negative. Genitourinary: Negative. Musculoskeletal: Positive for myalgias. Neurological: Positive for headaches. All other systems reviewed and are negative. PAST MEDICAL HISTORY Diagnosis Date Environmental allergies NEGATIVE HISTORY OF 2007 Normal Color Vision Current Outpatient Medications Medication Sig Dispense Refill Cetirizine (ZYRTEC) 10 mg cap Take by mouth. predniSONE (DELTASONE) 10 mg tablet Take 4 tabs daily for 3 days, then 2 tabs daily for 3 days, then 1 tab daily for 3 days with food. (Patient not taking: Reported on 01/22/2024) 21 tablet 0 albuterol HFA (PROVENTIL HFA, VENTOLIN HFA) 90 mcg/actuation inhaler Inhale 2 Puffs as instructed every 4 hours as needed for wheezing/shortness of breath. 8 g 0 No current facility-administered medications for this visit. PAST SURGICAL HISTORY Procedure Laterality Date CIRCUMCISION RPR TUNICA VAGINALIS HYDROCELE BOTTLE TYPE TONSILLECTOMY & ADENOIDECTOMY <AGE 14 2008 FAMILY HISTORY Problem Relation Age of Onset Asthma Father Hypertension Father Social History Tobacco Use Smoking status: Never Smokeless tobacco: Current Tobacco comments: chew Substance Use Topics Alcohol use: No Drug use: No Objective BP 128/76 Pulse 102 Temp 37.7 C (99.9 F) Resp 18 Wt 72.4 kg (159 lb 9.8 oz) SpO2 96% Physical Exam Vitals reviewed. Constitutional: Appearance: Normal appearance. HENT: Head: Normocephalic and atraumatic. Right Ear: Tympanic membrane, ear canal and external ear normal. Left Ear: Tympanic membrane, ear canal and external ear normal. Nose: Congestion present. Mouth/Throat: Mouth: Mucous membranes are moist. Pharynx: Oropharynx is clear. Cardiovascular: Rate and Rhythm: Regular rhythm. Tachycardia present. Heart sounds: Normal heart sounds. Pulmonary: Effort: Pulmonary effort is normal. No respiratory distress. Breath sounds: Wheezing present. No rhonchi. Musculoskeletal: Cervical back: Neck supple. Skin: General: Skin is warm and dry. Neurological: General: No focal deficit present. Mental Status: He is alert. Assessment and Plan ASSESSMENT/PLAN: 1. Viral illness - ICD9: 079.99, ICD10: B34.9 (primary diagnosis) - Discussed viral etiology and rationale for treatment. -I feel patient likely has a viral bronchitis. Chest x-ray is clear. I will treat with prednisone, Tessalon and albuterol inhaler. Follow-up with PCP if not improving. Patient agreeable with plan. - Symptomatic treatment with prn analgesia - Supportive care with fluids and rest - XR CHEST 2V FRONTAL/LAT 2. Sore throat - ICD9: 462, ICD10: J02.9 - Group A strep molecular testing negative - STREP A MOLECULAR (POC) Trish Montemayor PA-C documented in this encounter [facility] 01-22-2024 History of Presen t illness Narrative Radiology Service Progress Note PATIENT NAME: Severo White DATE OF SERVICE: January 22, 2024 TIME: 11:49 AM PATIENT IDENTITY VERIFICATION COMPLETED USING TWO (2) IDENTIFIERS: Name and Date of confirmed by patient verbally. FALL SCREENING: Has the patient had 2 falls in the last year or 1 fall with injury or currently using an Ambulatory Assistive Device (Walker, Cane, Wheelchair, Crutches, etc.)? No PATIENT GENDER DATA: Male PATIENT RELEVANT IMPLANT DATA REVIEWED: Yes PATIENT PRESENTS WITH AN IMPLANTABLE OR ATTACHED COMPONENT DESIGN ENGINEER: No RADIOLOGY DEPARTMENT: General X-ray: Exam(s) Completed: Chest X-Ray PERIPHERAL IV DATA: Not applicable SIGNED BY: RT Yarely(R) January 22, 2024 11:49 AM documented in this encounter [facility] 04-25-2023 History of Presen t illness Narrative Subjective HPI Severo White is a 22 year old male who presents with cough, congestion and sweating at night for the past 5 days. He had to use his inhaler last night due to shortness of breath. He states he has a history of asthma. He denies fever or chills. He has not had any known sick contacts. He has not taken any medication for his symptoms. Review of Systems Constitutional: Positive for diaphoresis. Negative for chills and fever. HENT: Positive for congestion. Negative for ear pain and sore throat. Respiratory: Positive for cough, shortness of breath and wheezing. Cardiovascular: Negative. Musculoskeletal: Negative for myalgias. Neurological: Negative for headaches. BP 112/62 Pulse 74 Temp 36.6 C (97.9 F) Resp 16 Wt 74.4 kg (164 lb) SpO2 97% PAST MEDICAL HISTORY Diagnosis Date Environmental allergies NEGATIVE HISTORY OF 2007 Normal Color Vision PAST SURGICAL HISTORY Procedure Laterality Date CIRCUMCISION RPR TUNICA VAGINALIS HYDROCELE BOTTLE TYPE TONSILLECTOMY & ADENOIDECTOMY <AGE 14 2008 ALLERGIES Cats, Dogs, Dust Mites, Grass Pollen, Horses [Other], and Wheat MEDICATIONS predniSONE (DELTASONE) 20 mg tablet Take 1 tablet by mouth once daily for 4 days. Take daily with food. FAMILY HISTORY Problem Relation Age of Onset Asthma Father Hypertension Father Social History Tobacco Use Smoking status: Never Smokeless tobacco: Current Tobacco comments: chew Substance Use Topics Alcohol use: No Drug use: No Objective Physical Exam Vitals and nursing note reviewed. Constitutional: Appearance: Normal appearance. HENT: Right Ear: Tympanic membrane, ear canal and external ear normal. Left Ear: Tympanic membrane, ear canal and external ear normal. Nose: Nose normal. Mouth/Throat: Mouth: Mucous membranes are moist. Pharynx: Oropharynx is clear. Uvula midline. No oropharyngeal exudate or posterior oropharyngeal erythema. Cardiovascular: Rate and Rhythm: Normal rate and regular rhythm. Heart sounds: Normal heart sounds. Pulmonary: Effort: Pulmonary effort is normal. No respiratory distress. Breath sounds: Normal breath sounds. No wheezing or rales. Musculoskeletal: Cervical back: Neck supple. Lymphadenopathy: Cervical: No cervical adenopathy. Skin: General: Skin is warm and dry. Findings: No erythema or rash. Neurological: Mental Status: He is alert. ASSESSMENT/PLAN: 1. Acute cough - ICD9: 786.2, ICD10: R05.1 (primary diagnosis) - PREDNISONE 20 MG TABLET 2. Viral URI with cough - ICD9: 465.9, ICD10: J06.9 - Discussed viral etiology and rationale for treatment. - Symptomatic treatment with prn analgesia - Supportive care with fluids and rest - offered COVID testing, patient declined. - Follow-up with your PCP in 3-5 days if symptoms have not improved or sooner if symptoms worsen - Discussed red flags and need for immediate medical evaluation if any occur. - Discussed supportive care treatment with fluids, rest and analgesia. - Discussed expected course of illness Sylvia Garay APRN.DIRECTOR CORRECTIONAL AGENCY documented in this encounter [facility] 04-25-2023 Instructions Sylvia Garay APRN.DIRECTOR CORRECTIONAL AGENCY - 04/25/2023 1:15 PM EDT ASSESSMENT/PLAN: 1. Acute cough - ICD9: 786.2, ICD10: R05.1 (primary diagnosis) - PREDNISONE 20 MG TABLET 2. Viral URI with cough - ICD9: 465.9, ICD10: J06.9 - Discussed viral etiology and rationale for treatment. - Symptomatic treatment with prn analgesia - Supportive care with fluids and rest - offered COVID testing, patient declined. - Follow-up with your PCP in 3-5 days if symptoms have not improved or sooner if symptoms worsen - Discussed red flags and need for immediate medical evaluation if any occur. - Discussed supportive care treatment with fluids, rest and analgesia. - Discussed expected course of illness Sylvia Garay APRN.CNP Treatment for Viral Upper Respiratory Tract Infections Your body will kill off the virus by itself. Additionally, you can prime your body's immune system. This may help you get better more quickly. Drink lots of fluids Make sure you are eating well Get plenty of rest We do not have any medications that kill off these viruses. Antibiotics are used to treat bacterial infections; however, they are not active against viral infections. There are some things that might help you feel better, though. Vaporizers, humidifiers, hot showers, and hot fluids help open respiratory and sinus passages Moffat Nasal Jackson may offer relief of nasal and head congestion Devan's Vapor Rub may relieve congestion Tylenol and Advil help control fevers and headaches Salt water gargles help relieve sore throats Chloraceptic spray or throat lozenges may also help relieve sore throat symptoms Occasionally, viral infections turn into something more serious. You should see your doctor or return to the Urgent Care if: You have fevers for longer than five days You have fevers above 102 degrees You are still sick after 10 days You have shortness of breath or wheezing After several days you are getting worse rather than better documented in this encounter [facility] 12-30-2022 History of Presen t illness Narrative Radiology Service Progress Note PATIENT NAME: Severo White DATE OF SERVICE: December 30, 2022 TIME: 1:41 PM PATIENT IDENTITY VERIFICATION COMPLETED USING TWO (2) IDENTIFIERS: Name and Date of confirmed by patient verbally. FALL SCREENING: Has the patient had 2 falls in the last year or 1 fall with injury or currently using an Ambulatory Assistive Device (Walker, Cane, Wheelchair, Crutches, etc.)? No PATIENT GENDER DATA: Male PATIENT RELEVANT IMPLANT DATA REVIEWED: Yes RADIOLOGY DEPARTMENT: General X-ray: Exam(s) Completed: Upper Extremity X-Ray(s): Shoulder, AP / TRUE AP / AXILLARY right PERIPHERAL IV DATA: Not applicable SIGNED BY: RT Yarely(R) December 30, 2022 1:41 PM documented in this encounter [facility] 12-30-2022 History of Presen t illness Narrative Images from the original note were not included. Subjective She came in with complaints of right shoulder pain. Says he injured it yesterday while bull riding. Patient said he fell off the void landed full force on that shoulder. Patient denies any numbness tingling or shooting pain. Patient denies any other symptoms at this time. The history is provided by the patient. No american sign language interpreter was used. Trauma Review of Systems Constitutional: Negative. Skin: Negative. Objective Physical Exam Constitutional: Appearance: Normal appearance. Pulmonary: Effort: Pulmonary effort is normal. Musculoskeletal: Arms: Comments: Patient is experiencing pain in the area marked above. Patient passed the empty can test and failed the scratch test. No swelling discoloration or deformities noted upon palpation. Circulation intact. Neurological: Mental Status: He is alert. PAST MEDICAL HISTORY Diagnosis Date Environmental allergies NEGATIVE HISTORY OF 2007 Normal Color Vision PAST SURGICAL HISTORY Procedure Laterality Date CIRCUMCISION RPR TUNICA VAGINALIS HYDROCELE BOTTLE TYPE TONSILLECTOMY & ADENOIDECTOMY <AGE 12 2008 ALLERGIES Cats, Dogs, Dust Mites, Grass Pollen, Horses [Other], and Wheat MEDICATIONS No prescriptions on file. FAMILY HISTORY Problem Relation Age of Onset Asthma Father Hypertension Father Social History Tobacco Use Smoking status: Never Smokeless tobacco: Current Tobacco comments: chew Substance Use Topics Alcohol use: No Drug use: No ASSESSMENT/PLAN: 1. Pain - ICD9: 780.96, ICD10: R52 - XR SHOULDER GENERAL 3V OR MORE AP/TRUE AP/OTHER RIGHT * * * * Physician Interpretation * * * * EXAMINATION: XR SHLDR >/=3V AP/RIK AP/OTHR RT CLINICAL HISTORY: Right shoulder pain Technique: XR SHLDR >/=3V AP/RIK AP/OTHR RT -- RIGHT with 3 views on 3 images Comparison: None RESULT: No acute fracture or dislocation. Joint spaces are maintained. IMPRESSION IMPRESSION: No acute osseous abnormality Stripper Cutter Machine: ESTHER Transcribe Date/Time: Dec 30 2022 2:07P Dictated by : BRIAN GORDON MD - CONSULT TO ORTHOPAEDICS Patient mother was called and updated about x-ray results of no acute findings. Instructed to rest ice give it a few days. If pain is persistent instructed to follow-up with orthopedics. Okay with this care plan will follow-up as needed Jennifer Suarez APRN.DIRECTOR CORRECTIONAL AGENCY documented in this encounter [facility] 10-24-2022 History of Presen t illness Narrative Patient presents with: Cough: Congestion, sweating x5 days HPI: Feeling sick for 5 days. Positive symptoms: cough, chest congestion, sore throat, Nasal Congestion, Rhinorrhea, Headache, Vomiting, feverish/sweating, Negative symptoms: Earache, Diarrhea, OTC: none. PAST MEDICAL HISTORY Diagnosis Date Environmental allergies NEGATIVE HISTORY OF 2007 Normal Color Vision MEDICATIONS: No current outpatient medications on file. No current facility-administered medications for this visit. ALLERGIES: ALLERGIES Allergen Reactions Cats Dogs Dust Mites Itching Grass Pollen Itching Horses [Other] Wheat Mental Status Change VITALS: BP 120/70 Pulse 79 Temp 36.8 C (98.3 F) Resp 20 Wt 74.7 kg (164 lb 9.6 oz) SpO2 98% PHYSICAL EXAM: GEN: mildly ill appearing HEENT: PERRL, EOMI, conjunctiva clear Ears: canals clear. TMs without erythema, bulge, or effusion Sinuses: non-tender frontal sinus, non-tender maxillary sinuses Throat: moist mucous membranes, mild erythema, no exudate Neck: supple, no thyromegaly, no lymphadenopathy HEART: regular rate and rhythm, no murmurs LUNGS: clear to auscultation, no wheezes or crackles, no increased WOB ASSESSMENT/PLAN: 1. URI, acute - ICD9: 465.9, ICD10: J06.9 - suspect viral URI, differential includes COVID-19. - Discussed supportive care treatment with home isolation, rest, cold medicine, and analgesia. - Red flags to seek further treatment include chest pain, shortness of breath, and lethargy; in the ER if severe. - 2019 CORONAVIRUS - reviewed isolation guidelines in case he tests positive. Neto Brown MD documented in this encounter [facility] 07-19-2022 Miscellaneous Notes Mother calls to report rx for prednisone needs to go to [facility] instead of [facility]. Rx message for prednisone left on 's line at [facility]. Anaya Simon LPN documented in this encounter [facility] 07-19-2022 History of Presen t illness Narrative Subjective HPI HPI Severo White is a 22 year old male who presents today for CC of st, cough, congestion. This started 4 days ago. Has tried otc medication for relief. Symptoms are worsened by nothing. No known sick exposures. nonsmoker. .Patient presents with: Pain, Throat: Pt reported throat pain rated 8, cough x4 days. PAST MEDICAL HISTORY Diagnosis Date NEGATIVE HISTORY OF 2007 Normal Color Vision PAST SURGICAL HISTORY Procedure Laterality Date CIRCUMCISION RPR TUNICA VAGINALIS HYDROCELE BOTTLE TYPE TONSILLECTOMY & ADENOIDECTOMY <AGE 14 2008 ALLERGIES Cats, Dogs, Dust Mites, Grass Pollen, Horses [Other], and Wheat MEDICATIONS predniSONE (DELTASONE) 20 mg tablet Take 2 tablets by mouth once daily for 5 days. Methylphenidate (METADATE CD) 40 mg CD capsule Take 1 capsule by mouth every morning for 30 days. COMPOUNDED PRESCRIPTION Immunotherapy 1 x per week [facility] (Patient not taking: Reported on 07/12/2020 ) FAMILY HISTORY Problem Relation Age of Onset Asthma Father Hypertension Father Social History Tobacco Use Smoking status: Never Smokeless tobacco: Current Tobacco comments: chew Substance Use Topics Alcohol use: No Drug use: No Review of Systems Constitutional: Negative for fever. HENT: Positive for congestion and sore throat. Negative for ear pain and nosebleeds. Respiratory: Positive for cough. Negative for shortness of breath and wheezing. Cardiovascular: Negative for chest pain. Gastrointestinal: Negative for abdominal pain, diarrhea, nausea and vomiting. Musculoskeletal: Negative for neck pain. Skin: Negative for itching and rash. Objective Blood pressure 126/84, pulse 89, temperature 36.8 C (98.3 F), resp. rate 18, weight 70.9 kg (156 lb 6.4 oz), SpO2 97 %. Physical Exam Constitutional: General: He is not in acute distress. Appearance: He is not toxic-appearing or diaphoretic. HENT: Head: Normocephalic and atraumatic. Nose: Nose normal. Mouth/Throat: Pharynx: Uvula midline. Posterior oropharyngeal erythema present. No pharyngeal swelling, oropharyngeal exudate or uvula swelling. Eyes: General: Lids are normal. No scleral icterus. Right eye: No discharge. Left eye: No discharge. Conjunctiva/sclera: Conjunctivae normal. Pupils: Pupils are equal, round, and reactive to light. Neck: Trachea: Trachea normal. Cardiovascular: Rate and Rhythm: Normal rate and regular rhythm. Heart sounds: Normal heart sounds. Pulmonary: Effort: Pulmonary effort is normal. Breath sounds: Normal breath sounds. Abdominal: Palpations: Abdomen is soft. There is no hepatomegaly or splenomegaly. Tenderness: There is no abdominal tenderness. Musculoskeletal: Cervical back: Normal range of motion and neck supple. Lymphadenopathy: Cervical: No cervical adenopathy. Right cervical: No superficial cervical adenopathy. Left cervical: No superficial cervical adenopathy. Skin: Findings: No rash. Neurological: Mental Status: He is alert and oriented to person, place, and time. ASSESSMENT/PLAN: 1. Sore throat - ICD9: 462, ICD10: J02.9 - suspect viral - Alere Strep Test neg, no culture pending - Discussed supportive care treatment with fluids, rest and analgesia. - The patient should follow up in 3-5 days if symptoms persist or worsen - STREP A MOLECULAR (POC) - PREDNISONE 20 MG TABLET Agrees to plan Parth Maria APRN.CNP documented in this encounter [facility] 10-05-2021 History of Presen t illness Narrative 21-year-old male presents for evaluation of having hard time breathing coughing up blood and having allergies. Patient states he has known allergies to horses [place] He states that over the last 3 weeks he has had increasing congestion but is basically clear. He has had coughing sneezing runny nose itchy eyes. He states that he then began wheezing. He is used his girlfriend's nebulizer which has helped him immensely. He states that he has been coughing a lot and occasionally brings up a bit of blood. This was not acute in onset. He audibly hears himself wheezing and so to people across the room prior to using the nebulizer treatment. He has not himself ever been diagnosed with asthma.ROS: 7 body systems reviewed and otherwise negative unless dictated in the history of present illness. [facility] Work Phone: 05-02-2011 History of Past i llness Narrative Problem Noted Date Resolved Date Viral Warts, R mid dorsal 2n d toe (giant recurrent wart) and others dorsal R 3rd toe 05/02/2011 11/21/2011 documented as of this encounter (statuses as of 07/19/2022) [facility] History of Past illness Narrative* Problem Noted Date Resolved Date Viral Warts, R mid dorsal 2n d toe (giant recurrent wart) and others dorsal R 3rd toe 05/02/2011 11/21/2011 documented as of this encounter (statuses as of 07/19/2022) [facility] History of Past illness Narrative* Problem Noted Date Resolved Date Viral Warts, R mid dorsal 2n d toe (giant recurrent wart) and others dorsal R 3rd toe 05/02/2011 11/21/2011 documented as of this encounter (statuses as of 10/24/2022) [facility] History of Past illness Narrative* Problem Noted Date Resolved Date Viral Warts, R mid dorsal 2n d toe (giant recurrent wart) and others dorsal R 3rd toe 05/02/2011 11/21/2011 documented as of this encounter (statuses as of 12/30/2022) [facility] History of Past illness Narrative* Problem Noted Date Diagnosed Date Resolved Date Viral Warts, R mid dorsal 2n d toe (giant recurrent wart) and others dorsal R 3rd toe 05/02/2011 11/21/2011 documented as of this encounter (statuses as of 04/25/2023) [facility] Diagnosis Onset Date Resolution Status Right wrist pain acute [facility] Work Phone: Evaluation note* Diagnosis Sore throat- Primary Acute ph[facility]itis [facility] Diagnosis URI, acute- Primary Acute upper respiratory infections of unspecified site [facility]* Diagnosis Pain- Primary Generalized pain documented in [facility]* Diagnosis Acute cough- Primary Viral URI with cough Acute upper respiratory infections of unspecified site [facility] noteNo assessment information availableWC[facility]* Diagnosis Viral illness- Primary Unspecified viral infection, in conditions classified elsewhere and of unspecified site Sore throat Acute pharyngitis Fever, unspecified fever cause documented in [facility]* Diagnosis Pain of right forearm- Primary Pain in limb Pain of right forearm Pain in limb documented in [facility]* Diagnosis Fever, unspecified fever cause documented in this [facility]* Diagnosis Pain of right forearm Pain in limb documented in this [facility]* Diagnosis Pain Generalized pain documented in [facility]* Diagnosis Folliculitis- Primary Other specified disease of hair and hair follicles Concern about STD in male without diagnosis Person with feared complaint in whom no diagnosis was made documented [facility]* Diagnosis Streptococcal pharyngitis- Primary Streptococcal sore throat Sore throat Acute pharyngitis documented in this encounter [facility] for referral (narrative)* Diagnostic Procedure Only (Urgent) - Closed Specialty Diagnoses / Procedures Referred By Contac t Referred To Contact XR IMAGING Diagnoses Pain of right forearm Procedures XR WRIST GENERAL 3V PA/LAT/OBL RIGHT RADEX WRIST COMPLETE MINIMUM 3 VIEWS Ally Faust, ALEKSANDRA [address] [place] [address] [place] [address] Referral ID Status Reason Start Date Expiration Date V isits Requested Visits Authorized [id number] Closed Auto-Generate d Referral 04/29/2024 05/29/2025 1 1 [facility] for referral (narrative)* Diagnostic Procedure Only (Urgent) - Closed Specialty Diagnoses / Procedures Referred By Contac t Referred To Contact XR IMAGING Diagnoses Pain of right forearm Procedures XR WRIST GENERAL 3V PA/LAT/OBL RIGHT RADEX WRIST COMPLETE MINIMUM 3 VIEWS Ally Faust APRN.DIRECTOR CORRECTIONAL AGENCY [address] [place] [address] [place] [address] Referral ID Status Reason Start Date Expiration Date V isits Requested Visits Authorized [id number] Closed Auto-Generate d Referral 04/29/2024 05/29/2025 1 1 [facility] for referral (narrative)* Diagnostic Procedure Only (Urgent) - Closed Specialty Diagnoses / Procedures Referred By Contac t Referred To Contact XR IMAGING Diagnoses Pain Procedures XR SHOULDER GENERAL 3V OR MORE AP/TRUE AP/OTHER RIGHT RADEX SHOULDER COMPLETE MINIMUM 2 VIEWS Jennifer Suarez APRN.DIRECTOR CORRECTIONAL AGENCY [address] [place] [address] [place] [address] Referral ID Status Reason Start Date Expiration Date V isits Requested Visits Authorized [id number] Closed Auto-Generate d Referral 12/30/2022 01/29/2024 1 1 [facility] for visit Narrative* Diagnostic Procedure Only (Urgent) - Closed Specialty Diagnoses / Procedures Referred By Contac t Referred To Contact XR IMAGING Diagnoses Pain of right forearm Procedures XR WRIST GENERAL 3V PA/LAT/OBL RIGHT RADEX WRIST COMPLETE MINIMUM 3 VIEWS Ally Faust APRN.DIRECTOR CORRECTIONAL AGENCY [address] [place] [address] [place] [address] Referral ID Status Reason Start Date Expiration Date V isits Requested Visits Authorized [id number] Closed Auto-Generate d Referral 04/29/2024 05/29/2025 1 1 [facility] for visit Narrative* Diagnostic Procedure Only (Urgent) - Closed Specialty Diagnoses / Procedures Referred By Contac t Referred To Contact XR IMAGING Diagnoses Pain Procedures XR SHOULDER GENERAL 3V OR MORE AP/TRUE AP/OTHER RIGHT RADEX SHOULDER COMPLETE MINIMUM 2 VIEWS Jennifer Suarez APRN.DIRECTOR CORRECTIONAL AGENCY [address] [place] [address] [place] [address] Referral ID Status Reason Start Date Expiration Date V isits Requested Visits Authorized [id number] Closed Auto-Generate d Referral 12/30/2022 01/29/2024 1 1 [facility] Summary Purpose Family History No Family History Records Found Relationship Condition Age at Onset Recorded Date/T edgard father Hypertension Unknown Advance Directives No Advanced Directives Records Found Advance Directive Response Recorded Date/ Time Living Will No April 18 4:33pm Power of Teaching Pastor No April 18 021 4:33pm Advance Directive Response Recorded Date/ Time Living Will No April 18 3:33pm Power of Teaching Pastor No April 18 3:33pm Chief Complaint and Reason for Visit Chief Complaint Right wrist xray right wrist pain Reason for Visit Right wrist pain Chief Complaint CONCERN FOR STD Health Concerns Infection Onset Date Last Indicated Resolved Time COVID-19 Rule-Out 10/24/2022 10/24/2022 Reason for Referral Specialty Diagnoses / Procedures Referred By Contac t Referred To Contact Orthopedics Diagnoses Pain Procedures CONSULT TO ORTHOPAEDICS OFFICE/OUTPATIENT [facility] 60-74 MINUTES Jennifer Suarez, [facility] [address] [place] [address] Referral ID Status Reason Start Date Expiration Date Visits Requested Visits Authorized [id number] Authorized PCP Requested Referral 12/30/2022 12/30/2023 1 1 Specialty Diagnoses / Procedures Referred By Contac t Referred To Contact XR IMAGING Diagnoses Pain Procedures XR SHOULDER GENERAL 3V OR MORE AP/TRUE AP/OTHER RIGHT RADEX SHOULDER COMPLETE MINIMUM 2 VIEWS Jennifer Suarez, [facility] [address] [place] [address] Xr Imaging Referral ID Status Reason Start Date Expiration Date V isits Requested Visits Authorized [id number] Closed Auto-Generate d Referral 12/30/2022 01/29/2024 1 1 Additional Source Comments (unrecognized sect ion and content) No Status Records FoundNo Status Records FoundNo Status Records FoundNo Status Records Found INFORMATION SOURCE (unrecogn ized section and content) DATE CREATED AUTHOR 04/04/2021 [facility] DATE CREATED AUTHOR AUTHOR'S ORGANIZ ATION 10/27/2021 [facility] DATE CREATED AUTHOR AUTHOR'S ORGANIZ ATION [facility] DATE CREATED AUTHOR AUTHOR'S ORGANIZ ATION 03/27/2025 [facility] Goals (unrecognized section and content) Goals may be documented in a n alternate sectionGoals may be documented in an alternate section Source Comments (unrecognize d section and content) In the event this informatio n is protected by the Federal Confidentiality of Alcohol and Drug Abuse Patient Records regulations: The Federal rules restrict any use of the information to criminally investigate or prosecute any alcohol or drug abuse patient.[facility] the event this information is protected by the Federal Confidentiality of Alcohol and Drug Abuse Patient Records regulations: The Federal rules restrict any use of the information to criminally investigate or prosecute any alcohol or drug abuse patient.[facility] the event this information is protected by the Federal Confidentiality of Alcohol and Drug Abuse Patient Records regulations: The Federal rules restrict any use of the information to criminally investigate or prosecute any alcohol or drug abuse patient.[facility] the event this information is protected by the Federal Confidentiality of Alcohol and Drug Abuse Patient Records regulations: The Federal rules restrict any use of the information to criminally investigate or prosecute any alcohol or drug abuse patient.[facility] the event this information is protected by the Federal Confidentiality of Alcohol and Drug Abuse Patient Records regulations: The Federal rules restrict any use of the information to criminally investigate or prosecute any alcohol or drug abuse patient.[facility] the event this information is protected by the Federal Confidentiality of Alcohol and Drug Abuse Patient Records regulations: The Federal rules restrict any use of the information to criminally investigate or prosecute any alcohol or drug abuse patient.[facility] the event this information is protected by the Federal Confidentiality of Alcohol and Drug Abuse Patient Records regulations: The Federal rules restrict any use of the information to criminally investigate or prosecute any alcohol or drug abuse patient.[facility] the event this information is protected by the Federal Confidentiality of Alcohol and Drug Abuse Patient Records regulations: The Federal rules restrict any use of the information to criminally investigate or prosecute any alcohol or drug abuse patient.[facility] the event this information is protected by the Federal Confidentiality of Alcohol and Drug Abuse Patient Records regulations: The Federal rules restrict any use of the information to criminally investigate or prosecute any alcohol or drug abuse patient.[facility] the event this information is protected by the Federal Confidentiality of Alcohol and Drug Abuse Patient Records regulations: The Federal rules restrict any use of the information to criminally investigate or prosecute any alcohol or drug abuse patient.[facility] the event this information is protected by the Federal Confidentiality of Alcohol and Drug Abuse Patient Records regulations: The Federal rules restrict any use of the information to criminally investigate or prosecute any alcohol or drug abuse patient.[facility] the event this information is protected by the Federal Confidentiality of Alcohol and Drug Abuse Patient Records regulations: The Federal rules restrict any use of the information to criminally investigate or prosecute any alcohol or drug abuse patient.[facility] the event this information is protected by the Federal Confidentiality of Alcohol and Drug Abuse Patient Records regulations: The Federal rules restrict any use of the information to criminally investigate or prosecute any alcohol or drug abuse patient.[facility] Reason for Visit (unrecogniz ed section and content) Reason Comments Pain, Throat Pt reported throat p ain rated 8, cough x4 days. Reason Comments Medication Problem Reason Comments Cough Congestion, sweating x5 days Reason Comments Trauma Pt c/o (RT) shoulder injury x1 day pain rated 6, reported bull riding. Reason Comments Head Congestion cough and fever x 5 days Reason Comments Sore Throat Body aches, chills f ever x5 days Reason Comments Trauma Right arm injury x 2 days Reason Comments STD std check, has lesio ns Reason Onset Date Comments Results 02/19/2025 Reason Comments Sore Throat Bump on back right s nimisha of tongue Care Teams (unrecognized sec tion and content) [employer] Service Attendant Relationship Specialty Start Date End Date Bin Gerber MD [address] [place] [address] PCP - General Pediatrics 04/02/14 [employer] Attendant Relationship Specialty Start Date End Date Bin Gerber MD [address] [place], [place] [id number] PCP - General Pediatrics 04/02/14 [employer] Service Attendant Relationship Specialty Start Date End Date Bin Gerber MD [address] [place], [place] [id number] PCP - General Pediatrics 04/02/14 [employer] Service Attendant Relationship Specialty Start Date End Date Bin Gerber MD [address] [place] [address] PCP - General Pediatrics 04/02/14 Team Status: Active Member Role Status Dates Dr. Bin Gerber MD Family Provider Active Dr. Bin Gerber MD Primary Care Provider Active Team Status: Inactive Member Role Status Dates Dr. Bin Gerber MD Primary Care Provider, Referr ing Provider Active Juan MICHELLE PA Attending Provider Active Team Status: Inactive Member Role Status Dates Dr. Bin Gerber MD Primary Care Provider Active Juan MICHELLE PA Attending Provider Active [employer] Service Attendant Relationship Specialty Start Date End Date Bin Gerber MD [address] [place] [address] PCP - General Pediatrics 04/02/14 04/24/23 FOR RECORDS PERTAINING TO PATIENTS WHO ARE OR HAVE BEEN ENROLLED IN A CHEMICAL DEPENDENCY/SUBSTANCEABUSE PROGRAM, SOME INFORMATION MAY BE OMITTED. This clinical summary was aggregated from multiple sources. Caution should be exercised in using it in the provision of clinical care. This summary normalizes information from multiple sources, and as a consequence, information in this document may materially change the coding, format and clinical context of patient data. In addition, data may be omitted in some cases. CLINICAL DECISIONS SHOULD BE BASED ON THE PRIMARY CLINICAL RECORDS. [facility]. provides no warranty or guarantee of the accuracy or completeness of information in this document.
[2025-08-14] MEDS: Lidocaine 1% (20 ml mdv) 20 ML Vial 10 ML INFILT (16:47)
[2025-08-14 17:14] VITALS: BP 141/81; PULSE 65; RESP 18; TEMP 36.1; O2SAT 100
== END 2025-08-14 17:15 | disposition home or self-care (01) ==
PROVIDERS: Emergency Provider Emergency Medicine; Visit Provider Emergency Medicine
DX: S61.211A Laceration without foreign body of left index finger without damage to nail, initial encounter (principal); X58.XXXA Exposure to other specified factors, initial encounter
CPT/HCPCS: 12001; 90715; 99283